=== PATIENT | female | born 1945 | race Caucasian/White ===

== ENCOUNTER → 2017-04-12 | Outpatient (REF) | payer MEDICARE, OTHER ==
[2017-04-12 14:59] LABS: ALBUMIN 3.8 GM/DL (3.2-5.2); ALBUMIN/GLOBULIN RATIO 1.12 (1.00-1.93); ALKALINE PHOSPHATASE 75 U/L (45-117); ALT/SGPT 40 U/L (12-78); ANION GAP 10 MEQ/L (8-16); AST/SGOT 35 U/L (15-37); BILIRUBIN,TOTAL 0.6 MG/DL (0.2-1.0); BLOOD UREA NITROGEN 15 MG/DL (7-18); CALCIUM LEVEL 9.2 MG/DL (8.8-10.2); CARBON DIOXIDE LEVEL 24 MEQ/L (21-32); CHLORIDE LEVEL 108 MEQ/L (98-107); CHOLESTEROL LEVEL 134 MG/DL (<200); CREATININE FOR GFR 0.68 MG/DL (0.55-1.02); FREE T4 1.69 NG/DL (0.76-1.46); GLOMERULAR FILTRATION RATE > 60.0 (>45); GLUCOSE, FASTING 118 MG/DL (80-110); SODIUM LEVEL 142 MEQ/L (136-145); TOTAL PROTEIN 7.2 GM/DL (6.4-8.2); TRIGLYCERIDES LEVEL 137 MG/DL (<150)
== END ==
LOC: M SFHCADAM 07:54
PROVIDERS: ATTEND Physician Assistant Medical
DX: Z78.0 Asymptomatic menopausal state (principal); E11.9 Type 2 diabetes mellitus without complications; E04.1 Nontoxic single thyroid nodule; E55.9 Vitamin D deficiency, unspecified

== ENCOUNTER → 2017-05-13 | Outpatient (CLI) | payer MEDICARE, BC, OTHER ==
--- NOTE | 2017-05-13 10:57 | REP ---
Clinical: Acute pain. Technique: AP, lateral, bilateral oblique and sunrise views of the right knee. Impression: Advanced tricompartmental osteoarthritic degenerative changes are appreciated. Findings include osteophytosis, medial tibiofemoral and patellofemoral joint space narrowing along with subchondral sclerosis and subtle chondrocalcinosis. No acute fracture or dislocation. No definite effusion. Impression: Advanced tricompartmental osteoarthritic degenerative changes. Signed by Zay Payne MD 05/13/2017 10:46 A
== END ==
LOC: M ADAMS 10:21
PROVIDERS: ATTEND Physician Assistant
DX: M17.11 Unilateral primary osteoarthritis, right knee (principal)

== ENCOUNTER → 2017-07-11 | Outpatient (REF) | payer MEDICARE | LOC: M SFHCADAM 12:54 | PROVIDERS: ATTEND Physician Assistant Medical | DX: R30.0 Dysuria (principal) ==

== ENCOUNTER → 2017-10-20 | Outpatient (REF) | payer MEDICARE, OTHER ==
[2017-10-20 20:18] LABS: BASO # 0.1 10^3/uL (0.0-0.2); BASO % 0.6 % (0.0-1.0); EOS # 0.2 10^3/uL (0.0-0.50); EOS % 2.3 % (0.0-3.0); IMMATURE GRANULOCYTE % 0.3 % (0-0); LYMPH # 2.7 10^3/uL (1.5-4.5); LYMPH % 30.4 % (24.0-44.0); MEAN CORPUSCULAR HEMOGLOBIN 27.9 pg (27.0-33.0); MEAN CORPUSCULAR VOLUME 87.2 fl (80.0-96.0); MONO # 0.6 10^3/uL (0.0-0.8); MONO % 6.3 % (0.0-5.0); NEUTROPHILS # 5.4 10^3/uL (1.8-7.7); NEUTROPHILS % 60.1 % (36.0-66.0); PLATELET COUNT, AUTOMATED 257 10^3/uL (150-450); RED CELL DISTRIBUTION WIDTH 13.2 % (11.5-14.5); WHITE BLOOD COUNT 8.9 10^3/uL (4.0-10.0)
[2017-10-20 20:53] LABS: ALBUMIN 3.9 GM/DL (3.2-5.2); ALBUMIN/GLOBULIN RATIO 1.08 (1.00-1.93); ALKALINE PHOSPHATASE 88 U/L (45-117); ALT/SGPT 40 U/L (12-78); ANION GAP 7 MEQ/L (8-16); AST/SGOT 33 U/L (7-37); BILIRUBIN,TOTAL 0.4 MG/DL (0.2-1.0); BLOOD UREA NITROGEN 29 MG/DL (7-18); CALCIUM LEVEL 9.1 MG/DL (8.8-10.2); CARBON DIOXIDE LEVEL 29 MEQ/L (21-32); CHLORIDE LEVEL 108 MEQ/L (98-107); CREATININE FOR GFR 0.83 MG/DL (0.55-1.02); FREE T4 1.32 NG/DL (0.76-1.46); GLOMERULAR FILTRATION RATE > 60.0 (>39); GLUCOSE, FASTING 170 MG/DL (83-110); POTASSIUM SERUM 3.9 MEQ/L (3.5-5.1); SODIUM LEVEL 144 MEQ/L (136-145); TOTAL PROTEIN 7.5 GM/DL (6.4-8.2)
== END ==
LOC: M SFHCADAM 15:04
PROVIDERS: ATTEND Physician Assistant Medical
DX: E03.9 Hypothyroidism, unspecified (principal); E11.9 Type 2 diabetes mellitus without complications; E78.4 Other hyperlipidemia; E55.9 Vitamin D deficiency, unspecified

== ENCOUNTER → 2017-12-15 | Outpatient (CLI) | payer MEDICARE, OTHER | LOC: M ADAMS 12:19 | DX: M25.78 Osteophyte, vertebrae (principal); M50.30 Other cervical disc degeneration, unspecified cervical region; M85.812 Other specified disorders of bone density and structure, left shoulder; M25.512 Pain in left shoulder | CPT/HCPCS: 72050 ==

== ENCOUNTER → 2018-01-16 | Outpatient (REF) | payer MEDICARE, OTHER | LOC: M LAB REF 19:22 | DX: N30.01 Acute cystitis with hematuria (principal) | CPT/HCPCS: 87088; 87186 ==

== ENCOUNTER → 2018-02-16 | Outpatient (REF) | payer MEDICARE, OTHER ==
[2018-02-16 14:03] LABS: ALBUMIN/GLOBULIN RATIO 1.21 (1.00-1.93); ALKALINE PHOSPHATASE 77 U/L (45-117); ALT/SGPT 24 U/L (12-78); ANION GAP 8 MEQ/L (8-16); AST/SGOT 22 U/L (7-37); BILIRUBIN,TOTAL 0.5 MG/DL (0.2-1.0); BLOOD UREA NITROGEN 21 MG/DL (7-18); CALCIUM LEVEL 8.8 MG/DL (8.8-10.2); CARBON DIOXIDE LEVEL 26 MEQ/L (21-32); CHLORIDE LEVEL 111 MEQ/L (98-107); CHOLESTEROL LEVEL 140 MG/DL (<200); CHOLESTEROL RISK RATIO 2.692 (<5); CREATININE FOR GFR 0.66 MG/DL (0.55-1.30); FREE T4 1.46 NG/DL (0.76-1.46); GLOMERULAR FILTRATION RATE > 60.0 (>39); GLUCOSE, FASTING 112 MG/DL (70-100); HDL CHOLESTEROL 52 MG/DL (>40); LDL CHOLESTEROL 64.6 MG/DL (<100); NON-HDL-C 88 MG/DL; POTASSIUM SERUM 4.4 MEQ/L (3.5-5.1); SODIUM LEVEL 145 MEQ/L (136-145); THYROID STIMULATING HORMONE 0.044 uIU/ML (0.358-3.740); TOTAL PROTEIN 7.3 GM/DL (6.4-8.2); TRIGLYCERIDES LEVEL 117 MG/DL (<150)
== END ==
LOC: M SFHCADAM 08:02
DX: E11.9 Type 2 diabetes mellitus without complications (principal); E78.4 Other hyperlipidemia; E03.9 Hypothyroidism, unspecified
CPT/HCPCS: 84443

== ENCOUNTER → 2018-09-24 | Outpatient (REF) | payer MEDICARE, OTHER ==
[2018-09-24 13:04] LABS: BASO # 0.1 10^3/uL (0.0-0.2); BASO % 0.9 % (0.0-1.0); EOS # 0.2 10^3/uL (0.0-0.50); EOS % 2.8 % (0.0-3.0); HEMATOCRIT 41.1 % (36.0-47.0); HEMOGLOBIN 13.5 g/dl (12.0-15.5); IMMATURE GRANULOCYTE % 0.2 % (0-3.0); LYMPH # 1.9 10^3/uL (1.5-4.5); LYMPH % 32.2 % (24.0-44.0); MEAN CORPUSCULAR HEMOGLOBIN 28.8 pg (27.0-33.0); MEAN CORPUSCULAR HGB CONC 32.8 g/dl (32.0-36.5); MEAN CORPUSCULAR VOLUME 87.8 fl (80.0-96.0); MONO # 0.5 10^3/uL (0.0-0.8); MONO % 7.8 % (0.0-5.0); NEUTROPHILS # 3.3 10^3/uL (1.8-7.7); NEUTROPHILS % 56.1 % (36.0-66.0); PLATELET COUNT, AUTOMATED 218 10^3/uL (150-450); RED BLOOD COUNT 4.68 10^6/uL (4.00-5.40); RED CELL DISTRIBUTION WIDTH 13.2 % (11.5-14.5); WHITE BLOOD COUNT 5.8 10^3/uL (4.0-10.0)
[2018-09-24 13:16] LABS: ALBUMIN 3.9 GM/DL (3.2-5.2); ALBUMIN/GLOBULIN RATIO 1.22 (1.00-1.93); ALKALINE PHOSPHATASE 70 U/L (45-117); ALT/SGPT 35 U/L (12-78); ANION GAP 8 MEQ/L (8-16); AST/SGOT 29 U/L (7-37); BILIRUBIN,TOTAL 0.6 MG/DL (0.2-1.0); BLOOD UREA NITROGEN 18 MG/DL (7-18); CALCIUM LEVEL 9.1 MG/DL (8.8-10.2); CARBON DIOXIDE LEVEL 26 MEQ/L (21-32); CHLORIDE LEVEL 106 MEQ/L (98-107); CHOLESTEROL LEVEL 129 MG/DL (<200); GLOMERULAR FILTRATION RATE > 60.0 (>39); GLUCOSE, FASTING 152 MG/DL (70-100); HDL CHOLESTEROL 52 MG/DL (>40); LDL CHOLESTEROL 55 MG/DL (<100); NON-HDL-C 77 MG/DL; POTASSIUM SERUM 4.6 MEQ/L (3.5-5.1); SODIUM LEVEL 140 MEQ/L (136-145); TOTAL 25(OH) VITAMIN D 20.7 NG/ML (30.0-100.0); TOTAL PROTEIN 7.1 GM/DL (6.4-8.2); TRIGLYCERIDES LEVEL 108 MG/DL (<150)
[2018-09-24 14:07] LABS: ESTIMATED AVERAGE GLUCOSE 157 MG/DL (60-110); HEMOGLOBIN A1c 7.1 %
== END ==
LOC: M SFHCADAM 08:00
DX: E11.9 Type 2 diabetes mellitus without complications (principal); E78.49 Other hyperlipidemia; E55.9 Vitamin D deficiency, unspecified
CPT/HCPCS: 80053

== ENCOUNTER → 2018-10-31 | Outpatient (CLI) | payer MEDICARE, OTHER, BC ==
--- NOTE | 2018-10-31 10:44 | REP ---
Clinical: Left knee pain. Technique: AP, lateral, bilateral oblique and sunrise views of the left knee. Findings: Moderate tricompartmental osteoarthritic degenerative changes include cortical irregularity, marginal osteophytes, subchondral sclerosis and medial as well as patellofemoral joint space narrowing. No acute fracture dislocation. No obvious effusion. Impression: Moderate tricompartmental osteoarthritic degenerative changes. Electronically Signed by Zay Payne MD 10/31/2018 10:36 A
--- NOTE | 2018-10-31 10:46 | REP ---
Clinical: Lower back pain. Technique: AP, lateral, coned-down views of the lumbosacral spine. Findings: Alignment and lordosis maintained. No acute fracture / compression injury or subluxation. Moderate multilevel degenerative changes primarily involving the L4-5 and L5-S1 levels include endplate sclerosis, disc space narrowing, and hypertrophic facet changes. Impression: Moderate multilevel degenerative changes. No acute fracture / compression injury or subluxation. Electronically Signed by Zay Payne MD 10/31/2018 10:37 A
== END ==
LOC: M ADAMS 10:11
PROVIDERS: ATTEND Physician Assistant
DX: M17.12 Unilateral primary osteoarthritis, left knee (principal); M51.36 Other intervertebral disc degeneration, lumbar region

== ENCOUNTER 2019-01-12 22:45 | Emergency (ER) | payer MEDICARE, OTHER, BC ==
[~2019-01-12] VITALS: Ht 170.2 cm; Wt 100.0 kg
[2019-01-12] MEDS ORDERED: ROSU5TAB4 PO (23:01)
[2019-01-12] MEDS ORDERED: METF10004 PO (23:01)
[2019-01-12] MEDS ORDERED: LEVO100T54 PO (23:01)
[2019-01-13] MEDS ORDERED: MORPHINE 2 MG/ML 1ML SYRINGE (J2270) IM ONE (00:15)
[2019-01-13] MEDS ORDERED: ROLLMIS2 XX (00:21)
[2019-01-13] MEDS ORDERED: NORCOTAB PO (00:21)
[2019-01-13] MEDS ORDERED: OXYCODONE/APAP 5MG/325MG(BULK FOR ED) 1 TABLET PO ONE (01:30)
[2019-01-13 03:11] VITALS: BP 160/82
--- NOTE | 2019-01-13 09:28 | REP ---
Right ankle four views: There is a trimalleolar fracture. The medial portion of the mortise is widened. There are is no dislocation. However, the distal tibia is subluxed anteriorly. There is a small calcaneal plantar spur Electronically Signed by Tim Duron MD 01/13/2019 09:20 A
--- NOTE | 2019-01-13 09:30 | REP ---
Right tibia-fibula four views: There is a trimalleolar fracture of the ankle. There is no other fracture. No calcifications or foreign bodies. Impression: Ankle trimalleolar fracture. Electronically Signed by Tim Duron MD 01/13/2019 09:23 A
--- NOTE | 2019-01-13 11:24 | ED PDOC ---
Post-Departure Follow-Up dr alford faxed formal report of right ankle/tib/fib for fu Marina Sage MD Jan 13, 2019 11:24
[2019-01-14] MEDS ORDERED: HYDR-3713 PO (15:49)
[2019-01-14] MEDS ORDERED: LORA10TA3 PO (16:58)
[2019-01-14] MEDS ORDERED: PATA2.5S OU (16:58)
[2019-01-14] MEDS ORDERED: FAMO1TAB25 PO (16:58)
== END 2019-01-13 03:09 | disposition home or self-care (01) ==
LOC: M ED 22:45
DX: S82.851A Displaced trimalleolar fracture of right lower leg, initial encounter for closed fracture (principal); W00.9XXA Unspecified fall due to ice and snow, initial encounter; Y92.093 Driveway of other non-institutional residence as the place of occurrence of the external cause; E11.9 Type 2 diabetes mellitus without complications; E03.9 Hypothyroidism, unspecified; E78.00 Pure hypercholesterolemia, unspecified; E66.9 Obesity, unspecified; Z79.84 Long term (current) use of oral hypoglycemic drugs; Z79.890 Hormone replacement therapy; Z79.899 Other long term (current) drug therapy; Z88.0 Allergy status to penicillin; Z88.1 Allergy status to other antibiotic agents; Z88.2 Allergy status to sulfonamides; Z88.8 Allergy status to other drugs, medicaments and biological substances

== ENCOUNTER 2019-01-14 13:15 | Inpatient (IN) | payer MEDICARE, OTHER, BC ==
[~2019-01-14] VITALS: Ht 170.2 cm; Wt 97.7 kg
[~2019-01-14 13:15] MED LIST: LEVO100T54 PO; METF10004 PO; NORCOTAB PO; ROLLMIS2 XX; ROSU5TAB4 PO
--- NOTE | 2019-01-14 15:01 | REP ---
Right ankle CT: Axial images are acquired helical scanning and a reformatted sagittal and coronal projections. Comparison is the plain film study dated 01/13/2019. There is a trimalleolar fracture as previously. The oblique fracture of the distal fibula demonstrates no diastases, however, there is slight overlapping of the fracture fragments measuring approximately 13 mm. There is a small accessory ossicle at the distal tip of the fibula. There is diastases of the medial malleolar fracture measuring 3 mm. Alignment is normal. There is a comminuted posterior malleolar fracture . There is a 2 ml step off along the posterior articular surface of the distal tibia at the fracture site. There is 2 mm of diastases of the major fracture fragments. There is a fiberglass cast. Electronically Signed by Tim Duron MD 01/14/2019 02:52 P
[2019-01-14 15:19] LABS: BASO % 0.5 % (0.0-1.0); EOS # 0.3 10^3/uL (0.0-0.50); EOS % 3.1 % (0.0-3.0); HEMATOCRIT 39.3 % (36.0-47.0); HEMOGLOBIN 12.8 g/dl (12.0-15.5); LYMPH # 1.9 10^3/uL (1.5-4.5); LYMPH % 23.8 % (24.0-44.0); MEAN CORPUSCULAR HEMOGLOBIN 28.7 pg (27.0-33.0); MEAN CORPUSCULAR HGB CONC 32.6 g/dl (32.0-36.5); MEAN CORPUSCULAR VOLUME 88.1 fl (80.0-96.0); MONO # 0.7 10^3/uL (0.0-0.8); MONO % 8.5 % (0.0-5.0); NEUTROPHILS # 5.1 10^3/uL (1.8-7.7); NEUTROPHILS % 63.8 % (36.0-66.0); PLATELET COUNT, AUTOMATED 186 10^3/uL (150-450); RED BLOOD COUNT 4.46 10^6/uL (4.00-5.40)
[2019-01-14 15:39] LABS: BLOOD UREA NITROGEN 18 MG/DL (7-18); CALCIUM LEVEL 8.1 MG/DL (8.8-10.2); CARBON DIOXIDE LEVEL 27 MEQ/L (21-32); CHLORIDE LEVEL 107 MEQ/L (98-107); CREATININE FOR GFR 0.79 MG/DL (0.55-1.30); GLOMERULAR FILTRATION RATE > 60.0 (>39); GLUCOSE, FASTING 151 MG/DL (70-100); POTASSIUM SERUM 3.7 MEQ/L (3.5-5.1); SODIUM LEVEL 141 MEQ/L (136-145)
[2019-01-14] MEDS ORDERED: HYDR-3713 PO (15:49)
[2019-01-14] MEDS ORDERED: PERCOCET 5MG/325MG TAB PO ONE (16:00)
--- NOTE | 2019-01-14 16:01 | REP ---
Right hip AP pelvis of four views History: Fall There is no acute fracture or dislocation. There is minimal narrowing of the joint spaces with associated sclerosis. IMPRESSION: Degenerative change as described above. Electronically Signed by Rustam Cullen MD 01/14/2019 04:08 P
[2019-01-14] MEDS ORDERED: PATA2.5S OU (16:58)
[2019-01-14] MEDS ORDERED: FAMO1TAB25 PO (16:58)
[2019-01-14] MEDS ORDERED: LORA10TA3 PO (16:58)
[2019-01-14] MEDS ORDERED: ACETAMINOPHEN TAB 650MG DOSE (2X325MG) PO PRN (19:45)
[2019-01-14] MEDS ORDERED: GLUCOSE 4 GM CHEW TABLET PO PRN (20:00)
[2019-01-14] MEDS ORDERED: DEXTROSE 50% 50 ML SYRINGE IV PRN (20:00)
[2019-01-14] MEDS ORDERED: LORATADINE 10 MG TAB PO PRN (20:00)
[2019-01-14] MEDS ORDERED: PERCOCET 5MG/325MG TAB PO PRN (20:00)
[2019-01-14] MEDS ORDERED: GLUCAGON FOR INJ 1 MG VIAL (J1610) SC PRN (20:00)
[2019-01-14] MEDS ORDERED: PILL CRUSHER/CUTTER 1 EACH XX PRN (20:15)
[2019-01-14 22:00] VITALS: BP 128/85
[2019-01-14] MEDS: PERCOCET 5MG/325MG TAB PO PRN (22:12)
[2019-01-14] MEDS: ROSUVASTATIN 10 MG TAB (CRESTOR) PO SCH (22:13)
[2019-01-14] MEDS: HumaLOG INSULIN (NovoLOG) PER UNIT SC SCH (22:52)
[2019-01-15 00:15] VITALS: BP 119/58
[2019-01-15] MEDS: LEVOTHYROXINE 100MCG TABLET (0.1MG) PO SCH (05:01)
[2019-01-15 05:03] VITALS: BP 133/68
[2019-01-15] MEDS: PERCOCET 5MG/325MG TAB PO PRN (05:12)
[2019-01-15 06:40] LABS: HEMATOCRIT 36.6 % (36.0-47.0); HEMOGLOBIN 11.8 g/dl (12.0-15.5); MEAN CORPUSCULAR HEMOGLOBIN 28.4 pg (27.0-33.0); MEAN CORPUSCULAR HGB CONC 32.2 g/dl (32.0-36.5); PLATELET COUNT, AUTOMATED 176 10^3/uL (150-450); RED BLOOD COUNT 4.16 10^6/uL (4.00-5.40); WHITE BLOOD COUNT 6.2 10^3/uL (4.0-10.0)
--- NOTE | 2019-01-15 06:57 | HPE ---
DATE OF ADMISSION: 01/14/2019 CHIEF COMPLAINT: Inability to care for herself after recent fall and bimalleolar right ankle fracture. HISTORY OF PRESENT ILLNESS: This is a 73-year-old female with a past medical history of diabetes, hypothyroidism, hyperlipidemia, who presents after patient recently fell on 01/12/2019 and had a right ankle malleolar fracture with inability to take care of herself. Patient reports that Monday, she was here in the emergency room and had a splint placed for the right ankle bimalleolar fracture. She called Dr. Trinh today and Dr. Trinh put her in a soft brace but said she was too swollen for surgery today. Dr. Trinh sent her here to be admitted because she was worried about the patient's ability to take care of herself in a setting of this new fracture. The patient' reports currently a 5 out of 10 pain in her right ankle that is well controlled with Percocet. She otherwise denies any complaints. REVIEW OF SYSTEMS: Negative on 14 out of 14 systems except as noted above. PAST MEDICAL HISTORY: As noted above in the history of present illness (HPI). PAST SURGICAL HISTORY: Cholecystectomy. Kidney stone removal. MEDICATIONS: Patient's home medications are: - Percocet one to two tablets every 4 hours as needed pain - metformin one gram by mouth twice a day - Pepcid 10 mg twice a day as needed indigestion - Patanol 0.1% solution, one drop OU twice a day as needed allergies - Synthroid 100 mcg daily - loratadine 10 mg by mouth daily as needed allergies - rosuvastatin 5 mg by mouth nightly ALLERGIES: AMPICILLIN, CEFACLOR, POVIDONE, IODINE, SULFA METHOXYL with TRIMETHOPRIM and TETRACYCLINE. SOCIAL HISTORY: Patient is and lives alone. No smoking. No drugs. She is retired. FAMILY HISTORY: Without findings of significant medical history. PHYSICAL EXAMINATION: On exam, the patient is currently afebrile to 97.6, blood pressure 122/55, pulse 75, respirations 18, saturating 97% on room air. GENERAL: She is in no acute distress and pleasant. HEENT: Oropharynx clear. NECK: Supple. CARDIOVASCULAR: Regular rate and rhythm. No murmurs, rubs or gallops. LUNGS: Clear to auscultation bilaterally. ABDOMEN: Soft, nontender, nondistended, positive bowel sounds. EXTREMITIES: No clubbing, cyanosis or edema. Her right leg is in a soft brace. NEURO: She is alert and oriented times three. Follows simple commands. No focal neurological deficits. SKIN: Intact. PSYCH: Mood stable. Labs reveal CBC with a white count of 8, hemoglobin 12.8, platelets of 186. Chemistry: Creatinine is 0.79, potassium 3.7. IMAGING: She had a hip/pelvis x-ray done today. This shows degenerative change. She had a right lower extremity CT done that shows the trimalleolar fracture as previously. See full report for full details. ASSESSMENT/PLAN: This is a 73-year-old female with a past medical history of diabetes, hypothyroidism, hyperlipidemia, who presents status post fall on 01/12/2019 with a right ankle trimalleolar fracture. PROBLEMS: 1. Trimalleolar ankle fracture: Dr. Trinh is aware of this patient and will see her. Apparently, she plans on surgery on Monday. For now, we will let her eat then and placed on Percocet for as needed pain control. She is otherwise stable. 2. Diabetes: Will hold her home metformin and place her on a sliding scale. 3. Hypothyroidism: Will continue her home Synthroid. 4. Hyperlipidemia: Continue her home statin. 5. Deep venous thrombosis (DVT) prophylaxis: She was put on Lovenox and this can be held prior to surgery.
[2019-01-15 07:00] LABS: BLOOD UREA NITROGEN 15 MG/DL (7-18); CALCIUM LEVEL 8.1 MG/DL (8.8-10.2); CARBON DIOXIDE LEVEL 26 MEQ/L (21-32); CHLORIDE LEVEL 108 MEQ/L (98-107); GLOMERULAR FILTRATION RATE > 60.0 (>39); GLUCOSE, FASTING 117 MG/DL (70-100); POTASSIUM SERUM 3.7 MEQ/L (3.5-5.1); SODIUM LEVEL 141 MEQ/L (136-145)
[2019-01-15] MEDS: HumaLOG INSULIN (NovoLOG) PER UNIT SC SCH ×4 (07:30→21:00)
[2019-01-15 08:00] VITALS: BP 138/69
[2019-01-15] MEDS: ENOXAPARIN 40 MG/0.4 ML SYRINGE (J1650) SC SCH (08:40)
--- NOTE | 2019-01-15 09:11 | IPNPDOC ---
Subjective Date Seen The patient was seen on 01/15/19. Subjective Chief Complaint/HPI Pt this morning reports that she is doing alright. She is quite tired, hasn't slept in 3 nights. States that when she fell also hurt her R hip and low back which makes it very difficult for her to maneuver independently. General: Reports: Fatigue Constitutional: Denies: Chills, Fever ENT: Denies: Head Aches Pulmonary: Denies: Dyspnea, Cough Cardiovascular: Denies: Chest Pain, Palpitations Gastrointestinal: Denies: Nausea, Vomiting, Diarrhea Neurological: Denies: Weakness Psych: Reports: Mood Normal Objective Physical Examination General Exam: Positive: Alert, Cooperative, No Acute Distress ENT Exam: Positive: Mucous membr. moist/pink Chest Exam: Positive: Clear to auscultation, Normal air movement Heart Exam: Positive: Rate Normal, Normal S1, Normal S2 Abdomen Exam: Positive: Normal bowel sounds, Soft; Negative: Tenderness Extremity Exam: Negative: Edema (R LE casted) Neuro Exam: Positive: Normal Speech Psych Exam: Positive: Mental status NL, Mood NL Assessment /Plan Problems (1) Bimalleolar fracture of right ankle Status: Acute Response to Treatment: Stable Discussed With: Nurse, Harpsichord Maker, Patient Problem Specific Plan: Consult Specialist, Monitor Clinically, Repeat Labs Problem Text: Pt managed by Ortho, Dr Trinh, plans for OR tomorrow. Pain controlled. Likely will need short term rehab post operatively. (2) DM2 (diabetes mellitus, type 2) Status: Chronic Response to Treatment: Stable Problem Specific Plan: Monitor Clinically Problem Text: Metformin held, monitor FSBS, resume post operatively. (3) Hypothyroidism Status: Chronic Response to Treatment: Stable Problem Specific Plan: Monitor Clinically Plan/VTE VTE Prophylaxis Ordered?: Yes VS, I&O, 24H, Fishbone Vital Signs/I&O Vital Signs Date Time Temp Pulse Resp B/P (MAP) Pulse Ox O2 Delivery O2 Flow Rate FiO2 01/15/19 05:42 18 01/15/19 05:03 97.1 87 133/68 (89) 97 01/14/19 17:52 Room Air I&O- Last 24 Hours up to 6 AM 01/15/19 06:00 Intake Total 180 ml Output Total 250 ml Balance -70 ml Laboratory Data 24H LABS Laboratory Tests 2 01/14/19 15:03: Immature Granulocyte % (Auto) 0.3, White Blood Count 8.0, Red Blood Count 4.46, Hemoglobin 12.8, Hematocrit 39.3, Mean Corpuscular Volume 88.1, Mean Corpuscular Hemoglobin 28.7, Mean Corpuscular Hemoglobin Concent 32.6, Red Cell Distribution Width 13.2, Platelet Count 186, Neutrophils (%) (Auto) 63.8, Lymphocytes (%) (Auto) 23.8L, Monocytes (%) (Auto) 8.5H, Eosinophils (%) (Auto) 3.1H, Basophils (%) (Auto) 0.5, Neutrophils # (Auto) 5.1, Lymphocytes # (Auto) 1.9, Monocytes # (Auto) 0.7, Eosinophils # (Auto) 0.3, Basophils # (Auto) 0.0, Nucleated Red Blood Cells % (auto) 0.0, Anion Gap 7L, Glomerular Filtration Rate > 60.0, Blood Urea Nitrogen 18, Creatinine 0.79, Sodium Level 141, Potassium Level 3.7, Chloride Level 107, Carbon Dioxide Level 27, Calcium Level 8.1L 01/14/19 22:19: Bedside Glucose (Misc Panel) 168H 01/15/19 06:27: Nucleated Red Blood Cells % (auto) 0.0, Anion Gap 7L, Glomerular Filtration Rate > 60.0, Blood Urea Nitrogen 15, Creatinine 0.60, Sodium Level 141, Potassium Level 3.7, Chloride Level 108H, Carbon Dioxide Level 26, Calcium Level 8.1L CBC/BMP Laboratory Tests 01/14/19 15:03 Red Blood Count 4.46, Mean Corpuscular Volume 88.1, Mean Corpuscular Hemoglobin 28.7, Mean Corpuscular Hemoglobin Concent 32.6, Red Cell Distribution Width 13.2, Neutrophils (%) (Auto) 63.8, Lymphocytes (%) (Auto) 23.8 L, Monocytes (%) (Auto) 8.5 H, Eosinophils (%) (Auto) 3.1 H, Basophils (%) (Auto) 0.5, Neutrophils # (Auto) 5.1, Lymphocytes # (Auto) 1.9, Monocytes # (Auto) 0.7, Eosinophils # (Auto) 0.3, Basophils # (Auto) 0.0, Calcium Level 8.1 L 01/15/19 06:27 Red Blood Count 4.16, Mean Corpuscular Volume 88.0, Mean Corpuscular Hemoglobin 28.4, Mean Corpuscular Hemoglobin Concent 32.2, Red Cell Distribution Width 13.2, Calcium Level 8.1 L ANDREA JARVIS PA-C Jan 15, 2019 09:11
[2019-01-15 12:00] VITALS: BP 140/68
[2019-01-15] MEDS ORDERED: MORPHINE 4 MG/ML 1ML VIAL/SYRINGE (J2270) IV PRN (12:30)
[2019-01-15] MEDS: diphenhydrAMINE 25 MG CAP PO PRN (12:38)
[2019-01-15] MEDS: traMADol 50 MG TAB PO PRN ×2 (12:39→18:08)
[2019-01-15 14:45] VITALS: BP 141/60
[2019-01-15] MEDS ORDERED: NORCO, ANEXSIA 5/325MG TABLET (HYDROcodone/ACETAMINOPHEN) PO PRN (19:00)
[2019-01-15] MEDS: DOCUSATE SODIUM 100 MG CAP PO SCH (20:38)
[2019-01-15] MEDS: ROSUVASTATIN 10 MG TAB (CRESTOR) PO SCH (20:39)
[2019-01-15 22:00] VITALS: BP 131/57
[2019-01-16] MEDS: NORCO, ANEXSIA 5/325MG TABLET (HYDROcodone/ACETAMINOPHEN) PO PRN ×3 (00:13→10:37)
[2019-01-16 02:00] VITALS: BP 121/56
[2019-01-16] MEDS: diphenhydrAMINE 25 MG CAP PO PRN ×2 (02:23→10:37)
[2019-01-16] MEDS: LEVOTHYROXINE 100MCG TABLET (0.1MG) PO SCH (05:13)
[2019-01-16] MEDS: ENOXAPARIN 40 MG/0.4 ML SYRINGE (J1650) SC SCH (05:45)
[2019-01-16 06:00] VITALS: BP 143/65
[2019-01-16] MEDS: CLINDAMYCIN 600 MG in APPROPRIATE DILUENT 1 EA IV ONE ×2 (06:00→17:24)
--- NOTE | 2019-01-16 07:43 | IPNPDOC ---
Subjective Date Seen The patient was seen on 01/16/19. Subjective Chief Complaint/HPI Patient lying comfortably in bed as I entered the room. She offered no complaints. She is preparing for surgery later today Constitutional: Denies: Chills, Fever Pulmonary: Denies: Dyspnea, Cough Cardiovascular: Denies: Chest Pain, Palpitations, Orthopnea Gastrointestinal: Denies: Nausea, Vomiting, Abdominal Pain, Constipation Psych: Reports: Mood Normal Objective Physical Examination General Exam: Positive: Alert, Cooperative, No Acute Distress ENT Exam: Positive: Mucous membr. moist/pink Chest Exam: Positive: Clear to auscultation, Normal air movement Heart Exam: Positive: Rate Normal, Normal S1, Normal S2 Abdomen Exam: Positive: Normal bowel sounds, Soft; Negative: Tenderness Extremity Exam: Negative: Edema (R LE casted) Neuro Exam: Positive: Normal Speech Psych Exam: Positive: Mental status NL, Mood NL Assessment /Plan Problems (1) Bimalleolar fracture of right ankle Status: Acute Response to Treatment: Stable Discussed With: Nurse, Circulation Worker, Patient Problem Specific Plan: Consult Specialist, Monitor Clinically, Repeat Labs Problem Text: 01/16/19: Patient medically optimized for surgery today. Plan for OR later this afternoon Pt managed by Ortho, Dr Trinh, plans for OR tomorrow. Pain controlled. Likely will need short term rehab post operatively. (2) DM2 (diabetes mellitus, type 2) Status: Chronic Response to Treatment: Stable Problem Specific Plan: Monitor Clinically Problem Text: 01/16/19: Medications held in preparation for surgery today. We will resume post operatively Metformin held, monitor FSBS, resume post operatively. (3) Hypothyroidism Status: Chronic Response to Treatment: Stable Problem Specific Plan: Monitor Clinically Plan/VTE VTE Prophylaxis Ordered?: Yes (Lovenox ) VS, I&O, 24H, Fishbone Vital Signs/I&O Vital Signs Date Time Temp Pulse Resp B/P (MAP) Pulse Ox O2 Delivery O2 Flow Rate FiO2 01/16/19 06:00 98.0 73 18 143/65 (91) 95 01/14/19 17:52 Room Air I&O- Last 24 Hours up to 6 AM 01/16/19 06:00 Intake Total 600 ml Output Total 1125 ml Balance -525 ml Laboratory Data 24H LABS Laboratory Tests 2 01/15/19 11:32: Bedside Glucose (Misc Panel) 157H 01/15/19 16:54: Bedside Glucose (Misc Panel) 122H 01/15/19 20:30: Bedside Glucose (Misc Panel) 146H LIZ MEDINA [facility] Jan 16, 2019 07:43
[2019-01-16] MEDS: HumaLOG INSULIN (NovoLOG) PER UNIT SC SCH ×4 (08:32→21:00)
[2019-01-16] MEDS: DOCUSATE SODIUM 100 MG CAP PO SCH ×2 (08:33→22:08)
[2019-01-16 14:00] VITALS: BP 136/66
[2019-01-16] MEDS ORDERED: ROCURONIUM BROMIDE 50 MG/5 ML VIAL As Ordered ONE (14:10)
[2019-01-16] MEDS ORDERED: ONDANSETRON 4MG/2ML VIAL (J2405) As Ordered ONE ×2 (14:10→19:48)
[2019-01-16] MEDS ORDERED: dexameTHASONE 4 MG/ML 1ML VIAL (J1100) As Ordered ONE (14:10)
[2019-01-16] MEDS ORDERED: PROPOFOL 200 MG/20 ML VIAL As Ordered ONE (14:10)
[2019-01-16] MEDS ORDERED: LIDOCAINE 2% INJ 100 MG/5 ML SDV (FOR ANES.) As Ordered ONE (14:10)
[2019-01-16] MEDS ORDERED: fentaNYL 100 MCG/2 ML INJECTION (J3010) As Ordered ONE ×3 (14:11→19:37)
[2019-01-16] MEDS ORDERED: MIDAZOLAM INJ 2 MG/2 ML VIAL (J2250) As Ordered ONE ×2 (14:11→14:59)
[2019-01-16] MEDS: fentaNYL 100 MCG/2 ML INJECTION (J3010) IV SCH ×2 (17:06→17:08)
[2019-01-16] MEDS ORDERED: MIDAZOLAM INJ 2 MG/2 ML VIAL (J2250) IV SCH (17:45)
[2019-01-16] MEDS ORDERED: ROPIvacaine 0.5% 30 ML INJECTION (J2795 PER 1MG) ONE (18:56)
[2019-01-16] MEDS ORDERED: dexameTHASONE 10 MG/1 ML VIAL PRES.FREE (J1100) ONE (18:56)
[2019-01-16] MEDS ORDERED: LIDOCAINE 1% MDV 20ML VIAL ONE (18:56)
[2019-01-16] MEDS ORDERED: NEOSTIGMINE 10 MG/10 ML VIAL (J2710) As Ordered ONE (19:47)
[2019-01-16] MEDS ORDERED: GLYCOPYRROLATE INJ 0.2 MG/ML 2 ML VIAL As Ordered ONE (19:47)
[2019-01-16] MEDS ORDERED: METOCLOPRAMIDE INJ 10MG/2ML VIAL (J2765) As Ordered ONE (19:48)
[2019-01-16] MEDS ORDERED: KETOROLAC 60 MG/2 ML VIAL (J1885) As Ordered ONE (19:48)
--- NOTE | 2019-01-16 20:38 | REP ---
RIGHT ANKLE COMPLETE: 01/16/2019. Comparison: CT ankle 01/14/2019, x-ray 01/13/2019. Clinical history: ORIF right ankle fracture. Findings: Nine images from C-arm fluoroscopy provided to Dr. Land of the orthopedic division. Compression side plate and screws are noted in the distal fibular fracture and two screws in the medial malleolar component of the fracture. The posterior malleolar component appears nearly anatomically aligned on the true lateral views. Fluoroscopy time: 2 minutes 20 seconds. Electronically Signed by Pavan Solis MD 01/16/2019 10:09 P
[2019-01-16] MEDS ORDERED: HYDROMORPHONE HCL 0.5 MG/ 0.5 ML SYRINGE (J1170 PER 1) IV PRN (20:45)
[2019-01-16] MEDS ORDERED: fentaNYL 100 MCG/2 ML INJECTION (J3010) IV PRN (20:45)
[2019-01-16] MEDS ORDERED: ONDANSETRON 4MG/2ML VIAL (J2405) IV PRN (20:45)
[2019-01-16] MEDS ORDERED: PERCOCET 5MG/325MG TAB PO PRN (20:45)
[2019-01-16] MEDS ORDERED: LR 1,000 ML IV SCH (20:45)
[2019-01-16] MEDS ORDERED: MORPHINE 4 MG/ML 1ML VIAL/SYRINGE (J2270) IV PRN (21:45)
[2019-01-16] MEDS ORDERED: oxyCODONE 5MG TAB PO PRN ×2 (21:45)
[2019-01-16 22:00] VITALS: BP 146/80
[2019-01-16] MEDS: ACETAMINOPHEN 500 MG TAB PO SCH (22:07)
[2019-01-16] MEDS: ROSUVASTATIN 10 MG TAB (CRESTOR) PO SCH (22:08)
[2019-01-16 22:30] VITALS: BP 150/82
[2019-01-16 23:00] VITALS: BP 156/80
[2019-01-17] VITALS: BP 148/92
[2019-01-17 01:00] VITALS: BP 142/88
[2019-01-17] MEDS: CLINDAMYCIN 600 MG in APPROPRIATE DILUENT 1 EA IV SCH ×2 (01:36→08:36)
[2019-01-17 02:00] VITALS: BP 140/89
[2019-01-17] MEDS: ACETAMINOPHEN 500 MG TAB PO SCH ×2 (05:38→14:00)
[2019-01-17] MEDS: LEVOTHYROXINE 100MCG TABLET (0.1MG) PO SCH (05:38)
[2019-01-17 06:00] VITALS: BP 124/77
[2019-01-17] MEDS ORDERED: XARE10TA PO (07:39)
[2019-01-17] MEDS ORDERED: TRAM50TA2 PO (07:39)
--- NOTE | 2019-01-17 07:52 | REP ---
Right ankle three views post internal fixation: There is a fiberglass cast. There is a compression plate stabilizing the fracture of the distal fibula in satisfactory position alignment. There are two orthopedic screws stabilizing the fracture of the medial malleolus in satisfactory position alignment. The mortise is symmetric. There is a fracture of the posterior malleolus maintained in satisfactory position alignment. Electronically Signed by Tim Duron MD 01/17/2019 07:43 A
[2019-01-17] MEDS: HumaLOG INSULIN (NovoLOG) PER UNIT SC SCH ×2 (08:35→13:28)
[2019-01-17] MEDS: DOCUSATE SODIUM 100 MG CAP PO SCH (08:35)
[2019-01-17] MEDS: NORCO, ANEXSIA 5/325MG TABLET (HYDROcodone/ACETAMINOPHEN) PO PRN ×2 (08:36→13:33)
[2019-01-17] MEDS ORDERED: PEG1POW PO (08:59)
[2019-01-17] MEDS ORDERED: COLA100C5 PO (08:59)
[2019-01-17] MEDS ORDERED: MIRALAX *UNIT DOSE* 17GM PACKET PO SCH (09:00)
[2019-01-17] MEDS ORDERED: ASPIRIN 81 MG CHEW TABLET PO SCH (09:00)
[2019-01-17] MEDS ORDERED: NORCOTAB PO (09:03)
[2019-01-17] MEDS ORDERED: MAGNESIUM CITRATE 300 ML BTL PO ONE (09:15)
--- NOTE | 2019-01-17 14:29 | DSES ---
DATE OF ADMISSION: 01/14/2019 DATE OF DISCHARGE: 01/17/2019 PRIMARY CARE PHYSICIAN: Meka Archer PA-C ATTENDING TODAY: Rosalva Mauricio DO [employer] Dr. Land HISTORY: This is a 73-year-old female patient who fell in her driveway on Monday evening, January 12. She suffered a right ankle fracture, was seen in the emergency room and discharged home. Upon arrival home she was unable to maneuver herself by herself due to the right ankle fracture as well as right hip and low back pain secondary to the fall and chronic left knee pain. She had help from her son and her grandson, although this resulted in another fall in the downstairs bathroom. [facility] called [facility] as instructed on Monday for follow-up with Dr. Land. Dr. Land saw her in the office and upon being informed that the patient was unable to be independent at home with her fracture, she was sent to the emergency room. Upon arrival to the emergency room, she was evaluated by physical therapy who agreed that she was not safe to be home and therefore she was admitted to the hospital for trimalleolar fracture, to await surgical consult and open reduction internal fixation (ORIF) which the patient underwent on January 16. At this point, she has been seen by physical therapy who feel as though she is appropriate for rehab. Her pain is controlled. She is eating well. Her routine at home medications can be resumed for both diabetes and hypothyroidism. DISCHARGE DIAGNOSES: Include: 1. Right bimalleolar fracture. 2. Diabetes mellitus type 2. 3. Hypothyroidism. 4. Morbid obesity. 5. Left knee osteoarthritis (OA). MEDICATIONS: Include: - hydrocodone one tablet every 4 hours as needed for pain, maximum daily dose of 6 - Colace 100 mg by mouth twice a day - polyethylene glycol one packet daily - Xarelto 10 mg by mouth daily - amlodipine 10 mg by mouth twice a day as needed for indigestion - Levoxyl 100 mcg by mouth daily - loratadine 10 mg by mouth daily as needed for allergies - metformin 1000 mg by mouth twice a day - Patanol one drop each eye twice daily as needed for allergies - rosuvastatin 5 mg by mouth at bedtime ACTIVITY: Should be per [facility]. DIET: Her diet should be consistent carbohydrate. Patient is being discharged to [facility] for rehabilitation. edited: 01/18/2019 0717 brandy NUNN
[2019-01-17] MEDS ORDERED: RIVAROXABAN 10 MG TAB (XARELTO) PO SCH (18:00)
[2019-01-18] MEDS ORDERED: SENN-23 PO (09:48)
[2019-01-18] MEDS ORDERED: ENEMENE4 PR (09:48)
[2019-01-18] MEDS ORDERED: VITMTA PO (09:48)
[2019-01-18] MEDS ORDERED: NORC1TAB4 PO (09:48)
[2019-01-18] MEDS ORDERED: COLA100C5 PO (09:48)
[2019-01-18] MEDS ORDERED: DULC10SU2 PR (09:48)
[2019-01-18] MEDS ORDERED: ACET1TAB55 PO (09:48)
[2019-01-18] MEDS ORDERED: MILK120011 PO (09:48)
[2019-01-18] MEDS ORDERED: XARE10TA PO (09:48)
[2019-01-18] MEDS ORDERED: GABA-843 PO (11:16)
--- NOTE | 2019-01-18 14:28 | CR ---
DATE OF CONSULTATION: 01/15/2019 CHIEF COMPLAINT: Right ankle fracture. HISTORY OF PRESENT ILLNESS: Yani Whittaker is a 73-year-old female who sustained a mechanical fall resulting in a right bimalleolar ankle fracture. She has been nonweight bearing on the right lower extremity and does lives alone. She was having significant difficulties at home and her and her daughter are quite concerned about her well being and safety. She does have history of diabetes, hypothyroidism and hyperlipidemia. The patient had been seen in the clinic where she was placed into a cast. Her daughter and herself did not feel like they could return home from the clinic and they were sent to the emergency room for further evaluation and possible halfway placement. She does have pain in her right ankle, however, it is controlled with pain medications. She will need open reduction internal fixation of the ankle as it is an unstable fracture. The patient is upset as she feels she should have never been sent home from the emergency room on the day of her injury. REVIEW OF SYSTEMS: Negative except for right ankle pain. PAST MEDICAL HISTORY: 1. Diabetes. 2. Hypothyroidism. 3. Hyperlipidemia. PAST SURGICAL HISTORY: 1. Cholecystectomy. 2. Kidney stone removal. HOME MEDICATIONS: - Percocet - metformin - Pepcid - atenolol - Synthroid - Loratadine - rosuvastatin ALLERGIES: - AMPICILLIN - CEFACLOR - POVIDONE IODINE - SULFA - METHOXYL WITH TRIMETHOPRIM - TETRACYCLINE SOCIAL HISTORY: The patient is . She lives alone. She does not smoke. She is retired. She does have a daughter who is here for her support. PHYSICAL EXAMINATION: General: Well appearing, alert and oriented, in no acute distress. Vital Signs on Admission: Temperature 97.6, blood pressure 122/55, respiratory rate 18, pulse 75, oxygen saturation 97% on room air. General: No acute distress. Cardiovascular: Regular rate and rhythm. Lungs: Clear to auscultation bilaterally. Abdomen: Soft. Nontender. Musculoskeletal: Right leg cast is intact. Intact EHL and FHL. Normal sensation to light touch over the toes. Toes are warm and well perfused. IMAGING: Right ankle CT scan shows a displaced trimalleolar fracture. Hip x-ray is also done which is positive for degenerative change. IMPRESSION: 73-year-old female with safety issues at home and right displaced ankle fracture. PLAN: The patient will need open reduction internal fixation (ORIF) of her ankle. We will get this set up for her as soon as possible. She will also need medical clearance. She will likely need placement as there is quite a great deal of concern about her being at home.
--- NOTE | 2019-01-18 23:31 | RO ---
DATE OF PROCEDURE: 01/16/2019 PREPROCEDURE DIAGNOSIS: Right trimalleolar ankle fracture. POSTPROCEDURE DIAGNOSIS: Right trimalleolar ankle fracture. PROCEDURE: Open reduction internal fixation right medial malleolus and lateral malleolus. SURGEON: Teresita Land MD TRAILER CHIEF: AUNG Castro ANESTHESIA: Popliteal block and general endotracheal. ESTIMATED BLOOD LOSS: 50 mL. COMPLICATIONS: None. CONDITION: Stable to recovery. IMPLANTS: Synthes distal fibula locking plate with associated 3.5 mm and 2.7 mm screws, and two 3.5 mm cannulated screws. INDICATIONS: Yani Whittaker is a 73-year-old female, status post a mechanical fall. Patient sustained a right trimalleolar ankle fracture. Risk and benefits of surgery were discussed with the patient in detail and included but are not limited to infection, damage to nerves and blood vessels, need for additional procedures, continued pain and stiffness. We also discussed blood clot and malunion or nonunion. Informed consent was obtained in the office and patient elected to proceed with surgery. DESCRIPTION OF PROCEDURE: The patient was met in the preoperative holding area where the right lower extremity was examined. Soft tissue envelope was found to be amenable to surgery. Her right lower extremity was marked as the correct operative site. She then underwent a nerve block by the anesthesiologist. She was taken to the operating room and placed in the supine position on the operating room table. Bony prominences were well padded. A well-padded tourniquet was placed on the right upper thigh. A chlorhexidine scrub was performed of the right lower extremity and then the right lower extremity was prepped and draped in the normal sterile fashion. The patient received antibiotics within 60 minutes prior to incision. At this point, the official time-out was held where the correct patient, operative site, and operative procedure were verified. The leg was exsanguinated and tourniquet was inflated to 250 mmHg. An incision was made in the posterolateral aspect of the distal fibula. Careful dissection was performed, and the fracture site was identified. Fracture was cleaned of hematoma and debris. Care was taken to keep my dissection posterior as to avoid the superficial peroneal nerve. Once the fracture was identified, a reduction was performed with a pointed reduction clamp. I did try to place a lag screw, however, given the comminuted nature of the fracture site. I was unable to get a screw with good purchase. A decision was then made to place the locking plate on distally. This was secured with 2.7 mm locking screws. After that, I then reduced the fracture with the pointed reduction clamp and the 3.5 mm screws were placed proximally. Following this, I was able to place a screw across the fracture site through the plate. Reduction and hardware placement were confirmed on AP, lateral, and mortise views. Next, attention was turned to the medial side. An incision was made directly over the medial malleolus. Dissection was performed with care to avoid the saphenous vein. Fracture site was identified and cleaned of hematoma and debris. It was reduced with a pointed reduction clamp. Two 3.5 mm cannulated screws were placed across the fracture site. Final x-rays were performed and fracture reduction was found to be satisfactory on AP, lateral, and mortise views. I did stress the fracture with an external rotation stress test under live fluoroscopy and there was no widening of the medial clear space. The posterior malleolar fragment reduced nicely without surgical intervention after the fibula was out to length and this was left alone. AUNG Castro was present through the entire procedure and was essential for soft tissue retraction, aid in hardware placement, and overall reduction in tourniquet time. The patient's wounds were irrigated copiously with normal saline. Subcutaneous tissues were closed with #3-0 Vicryl and skin was closed using #3-0 nylon. A sterile dressing was applied, and the patient was placed into a well-padded cast. She was extubated and transferred to the recovery room in stable condition. PLAN: The patient will be non-weightbearing on the right lower extremity. She will be on Xarelto for deep vein thrombosis (DVT) prophylaxis. She will followup with me in 1 week for dressing and cast change, and skin check. Patient was admitted to the hospital for intermediate placement. Edited 01/18/2019 jack
== END 2019-01-17 13:45 | DRG 494 ==
LOC: M ED 13:15 → M ED INP 19:43 → M MS5PR 01-15 14:43
PROVIDERS: ADMIT Hospitalist; ATTEND Family Medicine
PROC: 0QSJ04Z Reposition Right Fibula with Internal Fixation Device, Open Approach (ICD-10-PCS; principal; 2019-01-16 15:30)
DX: S82.851A Displaced trimalleolar fracture of right lower leg, initial encounter for closed fracture (principal); E11.9 Type 2 diabetes mellitus without complications; E03.9 Hypothyroidism, unspecified; E78.5 Hyperlipidemia, unspecified; Z90.49 Acquired absence of other specified parts of digestive tract; Z87.442 Personal history of urinary calculi; Z79.84 Long term (current) use of oral hypoglycemic drugs; Z79.899 Other long term (current) drug therapy; Z88.1 Allergy status to other antibiotic agents; Z88.2 Allergy status to sulfonamides; Z88.8 Allergy status to other drugs, medicaments and biological substances; W19.XXXA Unspecified fall, initial encounter; Y92.014 Private driveway to single-family (private) house as the place of occurrence of the external cause; M17.12 Unilateral primary osteoarthritis, left knee

== ENCOUNTER 2019-01-18 09:02 | Emergency (ER) | payer MEDICARE, OTHER, BC ==
[~2019-01-18] VITALS: Ht 170.2 cm; Wt 97.7 kg
[~2019-01-18 09:02] MED LIST changes: +COLA100C5 PO; +FAMO1TAB25 PO; +HYDR-3713 PO; +LORA10TA3 PO; +PATA2.5S OU; +PEG1POW PO; +TRAM50TA2 PO; +XARE10TA PO
[2019-01-18] MEDS ORDERED: VITMTA PO (09:48)
[2019-01-18] MEDS ORDERED: XARE10TA PO (09:48)
[2019-01-18] MEDS ORDERED: DULC10SU2 PR (09:48)
[2019-01-18] MEDS ORDERED: ENEMENE4 PR (09:48)
[2019-01-18] MEDS ORDERED: NORC1TAB4 PO (09:48)
[2019-01-18] MEDS ORDERED: MILK120011 PO (09:48)
[2019-01-18] MEDS ORDERED: COLA100C5 PO (09:48)
[2019-01-18] MEDS ORDERED: SENN-23 PO (09:48)
[2019-01-18] MEDS ORDERED: ACET1TAB55 PO (09:48)
[2019-01-18] MEDS ORDERED: MORPHINE 4 MG/ML 1ML VIAL/SYRINGE (J2270) IV ONE (10:00)
[2019-01-18] MEDS ORDERED: GABAPENTIN 300 MG CAP PO ONE (10:00)
[2019-01-18] MEDS ORDERED: GABA-843 PO (11:16)
[2019-01-18] MEDS ORDERED: HYDROMORPHONE HCL 0.5 MG/ 0.5 ML SYRINGE (J1170 PER 1) IV ONE (11:30)
[2019-01-18 14:50] VITALS: BP 140/65
== END 2019-01-18 15:11 | disposition home or self-care (01) ==
LOC: M ED 09:02
DX: M25.571 Pain in right ankle and joints of right foot (principal); E11.9 Type 2 diabetes mellitus without complications; G62.9 Polyneuropathy, unspecified; E03.9 Hypothyroidism, unspecified; K21.9 Gastro-esophageal reflux disease without esophagitis; Z79.899 Other long term (current) drug therapy; Z79.01 Long term (current) use of anticoagulants; Z88.0 Allergy status to penicillin; Z88.1 Allergy status to other antibiotic agents; Z88.2 Allergy status to sulfonamides; Z88.8 Allergy status to other drugs, medicaments and biological substances
CPT/HCPCS: 96374; 96375; 99284; J1170; J2270

== ENCOUNTER → 2019-03-30 | Outpatient (REF) | payer MEDICARE, OTHER ==
[~2019-03-30] MED LIST changes: +ACET1TAB55 PO; +DULC10SU2 PR; +ENEMENE4 PR; +GABA-843 PO; +HYDR-3715 PO; +MILK120011 PO; +NORC1TAB7 PO; -NORCOTAB PO; +SENN-23 PO; +VITMTA PO
== END ==
LOC: M LAB REF 11:26
PROVIDERS: ATTEND Physician Assistant Medical
DX: N39.0 Urinary tract infection, site not specified (principal)

== ENCOUNTER → 2019-05-21 | Outpatient (REF) | payer MEDICARE, OTHER ==
[~2019-05-21] MED LIST changes: -ROSU5TAB4 PO; +ROSU5TAB5 PO
[2019-05-21 13:55] LABS: ALBUMIN 3.9 GM/DL (3.2-5.2); ALT/SGPT 29 U/L (12-78); BILIRUBIN,TOTAL 0.5 MG/DL (0.2-1.0); BLOOD UREA NITROGEN 20 MG/DL (7-18); CALCIUM LEVEL 9.3 MG/DL (8.8-10.2); CARBON DIOXIDE LEVEL 28 MEQ/L (21-32); CHLORIDE LEVEL 106 MEQ/L (98-107); CREATININE FOR GFR 0.65 MG/DL (0.55-1.30); GLOMERULAR FILTRATION RATE > 60.0 (>39); GLUCOSE, FASTING 113 MG/DL (70-100); SODIUM LEVEL 140 MEQ/L (136-145); TOTAL 25(OH) VITAMIN D 15.5 NG/ML (30.0-100.0); TOTAL PROTEIN 7.2 GM/DL (6.4-8.2)
[2019-05-21 14:18] LABS: CREATININE, URINE 99.4 MG/DL; MALB URINE SIEMENS 20.9 MG/L
[2019-05-21 14:36] LABS: HEMOGLOBIN A1c 7.3 %
== END ==
LOC: M SFHCADAM 10:20
PROVIDERS: ATTEND Physician Assistant Medical
DX: E11.9 Type 2 diabetes mellitus without complications (principal); E55.9 Vitamin D deficiency, unspecified

== ENCOUNTER → 2019-11-26 | Outpatient (REF) | payer MEDICARE, OTHER ==
[2019-11-26 14:07] LABS: ALT/SGPT 23 U/L (12-78); BILIRUBIN,TOTAL 0.5 MG/DL (0.2-1.0); BLOOD UREA NITROGEN 18 MG/DL (7-18); CALCIUM LEVEL 8.8 MG/DL (8.8-10.2); CARBON DIOXIDE LEVEL 29 MEQ/L (21-32); CHLORIDE LEVEL 107 MEQ/L (98-107); CHOLESTEROL LEVEL 143 MG/DL (<200); CHOLESTEROL RISK RATIO 2.508 (<5); CREATININE FOR GFR 0.67 MG/DL (0.55-1.30); FREE T4 1.33 NG/DL (0.76-1.46); GLOMERULAR FILTRATION RATE > 60.0 (>39); GLUCOSE, FASTING 152 MG/DL (70-100); HDL CHOLESTEROL 57 MG/DL (>40); LDL CHOLESTEROL 64 MG/DL (<100); NON-HDL-C 86 MG/DL; POTASSIUM SERUM 4.8 MEQ/L (3.5-5.1); SODIUM LEVEL 140 MEQ/L (136-145); THYROID STIMULATING HORMONE 0.245 uIU/ML (0.358-3.740); TOTAL PROTEIN 7.4 GM/DL (6.4-8.2); TRIGLYCERIDES LEVEL 109 MG/DL (<150)
[2019-11-26 14:51] LABS: HEMOGLOBIN A1c 7.2 %
== END ==
LOC: M SFHCADAM 08:15
PROVIDERS: ATTEND Physician Assistant Medical
DX: E11.9 Type 2 diabetes mellitus without complications (principal); E03.9 Hypothyroidism, unspecified

== ENCOUNTER → 2020-02-04 | Outpatient (REF) | payer MEDICARE, OTHER ==
[2020-02-04 16:34] LABS: APPEARANCE, URINE CLOUDY (CLEAR); BACTERIA, URINE AUTO 1+ (NEGATIVE); BILIRUBIN, URINE AUTO NEGATIVE (NEGATIVE); BLOOD, URINE BLOOD 3+ (NEGATIVE); COLOR, URINE YELLOW (YELLOW); GLUCOSE, URINE (UA) AUTO NEGATIVE (NEGATIVE); KETONE, URINE AUTO TRACE mg/dL (NEGATIVE); LEUKOCYTE ESTERASE, URINE AUTO 3+ (NEGATIVE); MUCUS, URINE SMALL (NEGATIVE); NITRITE, URINE AUTO NEGATIVE (NEGATIVE); PROTEIN, URINE AUTO 2+ mg/dL (NEGATIVE); RBC, URINE AUTO 122 /HPF (0-3); SPECIFIC GRAVITY URINE AUTO 1.026 (1.002-1.035); SQUAMOUS EPITHELIAL CELL UR AU 6 /HPF (0-6); UROBILINOGEN, URINE AUTO 0.2 mg/dL (0.0-2.0); WBC, URINE AUTO TNTC /HPF (0-3)
== END ==
LOC: M SFHCADAM 16:06
PROVIDERS: ATTEND Physician Assistant Medical
DX: R39.15 Urgency of urination (principal)

== ENCOUNTER → 2020-04-24 | Outpatient (REF) | payer MEDICARE, OTHER | LOC: M LAB REF 13:00 | PROVIDERS: ATTEND Physician Assistant | DX: N39.0 Urinary tract infection, site not specified (principal) ==

== ENCOUNTER → 2020-05-02 | Outpatient (REF) | payer MEDICARE, OTHER | LOC: M LAB REF 15:28 | PROVIDERS: ATTEND Physician Assistant | DX: R30.0 Dysuria (principal) ==

== ENCOUNTER → 2020-05-18 | Outpatient (REF) | payer MEDICARE, OTHER | LOC: M LAB REF 12:30 | PROVIDERS: ATTEND Physician Assistant | DX: R30.0 Dysuria (principal) ==

== ENCOUNTER → 2020-05-27 | Outpatient (REF) | payer MEDICARE, OTHER ==
[2020-05-27 19:32] LABS: APPEARANCE, URINE CLOUDY (CLEAR); BACTERIA, URINE AUTO NEGATIVE (NEGATIVE); BILIRUBIN, URINE AUTO NEGATIVE (NEGATIVE); BLOOD, URINE BLOOD NEGATIVE (NEGATIVE); CALCIUM OXALATE CRYSTALS LARGE; COLOR, URINE YELLOW (YELLOW); GLUCOSE, URINE (UA) AUTO NEGATIVE (NEGATIVE); KETONE, URINE AUTO NEGATIVE (NEGATIVE); LEUKOCYTE ESTERASE, URINE AUTO NEGATIVE (NEGATIVE); MUCUS, URINE SMALL (NEGATIVE); NITRITE, URINE AUTO NEGATIVE (NEGATIVE); PROTEIN, URINE AUTO NEGATIVE (NEGATIVE); RBC, URINE AUTO 1 /HPF (0-3); SPECIFIC GRAVITY URINE AUTO 1.024 (1.002-1.035); SQUAMOUS EPITHELIAL CELL UR AU 0 /HPF (0-6); UROBILINOGEN, URINE AUTO 0.2 mg/dL (0.0-2.0); WBC, URINE AUTO 3 /HPF (0-3)
[2020-05-27 19:34] LABS: BASO % 0.5 % (0.0-1.0); EOS # 0.3 10^3/uL (0.0-0.5); HEMATOCRIT 44.1 % (36.0-47.0); HEMOGLOBIN 13.8 g/dl (12.0-15.5); LYMPH # 2.7 10^3/uL (1.5-5.0); LYMPH % 34.5 % (24.0-44.0); MEAN CORPUSCULAR HEMOGLOBIN 28.5 pg (27.0-33.0); MEAN CORPUSCULAR HGB CONC 31.3 g/dl (32.0-36.5); MEAN CORPUSCULAR VOLUME 91.1 fl (80.0-96.0); MONO # 0.6 10^3/uL (0.0-0.8); NEUTROPHILS # 4.1 10^3/uL (1.5-8.5); NEUTROPHILS % 52.5 % (36.0-66.0); PLATELET COUNT, AUTOMATED 256 10^3/uL (150-450); RED BLOOD COUNT 4.84 10^6/uL (4.00-5.40); WHITE BLOOD COUNT 7.8 10^3/uL (4.0-10.0)
[2020-05-27 19:52] LABS: ALT/SGPT 35 U/L (12-78); BILIRUBIN,TOTAL 0.4 MG/DL (0.2-1.0); BLOOD UREA NITROGEN 18 MG/DL (7-18); CALCIUM LEVEL 9.3 MG/DL (8.8-10.2); CARBON DIOXIDE LEVEL 27 MEQ/L (21-32); CHLORIDE LEVEL 106 MEQ/L (98-107); CHOLESTEROL LEVEL 181 MG/DL (<200); CHOLESTEROL RISK RATIO 3.934 (<5); GLOMERULAR FILTRATION RATE > 60.0 (>39); GLUCOSE, FASTING 227 MG/DL (70-100); HDL CHOLESTEROL 46 MG/DL (>40); LDL CHOLESTEROL 97 MG/DL (<100); NON-HDL-C 135 MG/DL; POTASSIUM SERUM 4.8 MEQ/L (3.5-5.1); SODIUM LEVEL 140 MEQ/L (136-145); THYROID STIMULATING HORMONE 0.343 uIU/ML (0.358-3.740); TOTAL PROTEIN 7.5 GM/DL (6.4-8.2); TRIGLYCERIDES LEVEL 190 MG/DL (<150)
[2020-05-27 19:53] LABS: TOTAL 25(OH) VITAMIN D 13.4 NG/ML (30.0-100.0)
== END ==
LOC: M SFHCADAM 13:28
PROVIDERS: ATTEND Family Medicine
DX: R10.30 Lower abdominal pain, unspecified (principal); N20.0 Calculus of kidney; Z86.19 Personal history of other infectious and parasitic diseases; E11.42 Type 2 diabetes mellitus with diabetic polyneuropathy; E66.01 Morbid (severe) obesity due to excess calories; E55.9 Vitamin D deficiency, unspecified

== ENCOUNTER → 2020-05-27 | Outpatient (CLI) | payer MEDICARE, OTHER, BC ==
--- NOTE | 2020-05-27 15:03 | REP ---
Clinical: Abdominal pain. Technique: Axial noncontrast images from the lung bases to the pubic symphysis with coronal and sagittal re-formations. Comparison: 11/17/2006. Findings: Liver, spleen, pancreas, bilateral adrenal glands and kidneys are normal. No perinephric stranding, hydroureteronephrosis, intrarenal or obstructing ureteral calculi are identified. Evidence of prior cholecystectomy. The enteric system is without obstruction or acute inflammatory process. Sigmoid diverticulosis noted without acute diverticulitis. Pelvis demonstrates normal bladder and age-appropriate uterus/adnexa. No ascites. No free air. No adenopathy. Atherosclerotic changes of the aorta and vasculature without aneurysm or dissection. Musculoskeletal structures demonstrate degenerative changes without focal osseous abnormality. Lung bases demonstrate chronic-appearing changes and 3 mm noncalcified nodule in the left lower lobe (image 12). Impression: 1. No acute abdominopelvic pathology appreciated. 2. Diverticulosis without acute diverticulitis. 3. Normal appearance to the urinary tract system. 4. 3 mm noncalcified nodule in the left lower lobe. Electronically Signed by Zay Payne MD 05/27/2020 02:55 P
== END ==
LOC: M RAD 14:18
PROVIDERS: ATTEND Family Medicine
DX: K57.30 Diverticulosis of large intestine without perforation or abscess without bleeding (principal); R91.8 Other nonspecific abnormal finding of lung field; R10.30 Lower abdominal pain, unspecified; N20.0 Calculus of kidney; Z90.49 Acquired absence of other specified parts of digestive tract

== ENCOUNTER → 2020-06-29 | Outpatient (REF) | payer MEDICARE, OTHER ==
[2020-06-29 18:35] LABS: APPEARANCE, URINE TURBID (CLEAR); BACTERIA, URINE AUTO 1+ (NEGATIVE); BILIRUBIN, URINE AUTO NEGATIVE (NEGATIVE); BLOOD, URINE BLOOD 3+ (NEGATIVE); COLOR, URINE AMBER (YELLOW); GLUCOSE, URINE (UA) AUTO NEGATIVE (NEGATIVE); KETONE, URINE AUTO TRACE mg/dL (NEGATIVE); LEUKOCYTE ESTERASE, URINE AUTO 3+ (NEGATIVE); MUCUS, URINE SMALL (NEGATIVE); NITRITE, URINE AUTO NEGATIVE (NEGATIVE); PROTEIN, URINE AUTO 2+ mg/dL (NEGATIVE); RBC, URINE AUTO 28 /HPF (0-3); SPECIFIC GRAVITY URINE AUTO 1.027 (1.002-1.035); SQUAMOUS EPITHELIAL CELL UR AU 0 /HPF (0-6); UROBILINOGEN, URINE AUTO 0.2 mg/dL (0.0-2.0); WBC, URINE AUTO TNTC /HPF (0-3)
== END ==
LOC: M LAB REF 17:46
PROVIDERS: ATTEND Nurse Practitioner Family
DX: N39.0 Urinary tract infection, site not specified (principal)

== ENCOUNTER → 2020-09-01 | Outpatient (REF) | payer MEDICARE, OTHER, BC ==
[2020-09-01 13:18] LABS: FREE T4 1.24 NG/DL (0.76-1.46); THYROID STIMULATING HORMONE 0.454 uIU/ML (0.358-3.740)
== END ==
LOC: M LABDRWAD 12:11
PROVIDERS: ATTEND Internal Medicine Endocrinology, Diabetes & Metabolism
DX: E03.9 Hypothyroidism, unspecified (principal)

== ENCOUNTER → 2020-10-20 | Outpatient (REF) | payer MEDICARE, OTHER, BC | LOC: M LAB REF 10:46 | PROVIDERS: ATTEND Physician Assistant | DX: N30.01 Acute cystitis with hematuria (principal) ==

== ENCOUNTER → 2020-12-14 | Outpatient (REF) | payer MEDICARE, OTHER ==
[~2020-12-14] MED LIST changes: +GABA-282 PO; -GABA-843 PO
[2020-12-14 14:47] LABS: ALBUMIN 3.9 GM/DL (3.2-5.2); ALT/SGPT 34 U/L (12-78); BILIRUBIN,TOTAL 0.6 MG/DL (0.2-1.0); BLOOD UREA NITROGEN 21 MG/DL (7-18); CALCIUM LEVEL 9.7 MG/DL (8.8-10.2); CARBON DIOXIDE LEVEL 25 MEQ/L (21-32); CHLORIDE LEVEL 107 MEQ/L (98-107); CHOLESTEROL LEVEL 161 MG/DL (<200); CHOLESTEROL RISK RATIO 2.981 (<5); GLOMERULAR FILTRATION RATE > 60.0 (>39); GLUCOSE, FASTING 142 MG/DL (70-100); HDL CHOLESTEROL 54 MG/DL (>40); LDL CHOLESTEROL 83 MG/DL (<100); NON-HDL-C 107 MG/DL; POTASSIUM SERUM 4.6 MEQ/L (3.5-5.1); SODIUM LEVEL 142 MEQ/L (136-145); TOTAL 25(OH) VITAMIN D 14.4 NG/ML (30.0-100.0); TOTAL PROTEIN 7.5 GM/DL (6.4-8.2); TRIGLYCERIDES LEVEL 121 MG/DL (<150)
[2020-12-14 16:38] LABS: HEMOGLOBIN A1c 6.7 %
== END ==
LOC: M SFHCADAM 08:22
PROVIDERS: ATTEND Physician Assistant Medical
DX: E03.9 Hypothyroidism, unspecified (principal); E55.9 Vitamin D deficiency, unspecified; E11.42 Type 2 diabetes mellitus with diabetic polyneuropathy

== ENCOUNTER 2021-01-04 17:01 | Emergency (ER) | payer MEDICARE, OTHER ==
[~2021-01-04] VITALS: Ht 170.2 cm; Wt 97.6 kg
[~2021-01-04 17:01] MED LIST changes: -PEG1POW PO; +POLY17PO18 PO
[2021-01-04 18:16] LABS: BASO # 0.1 10^3/uL (0.0-0.2); BASO % 0.6 % (0.0-1.0); EOS # 0.3 10^3/uL (0.0-0.5); EOS % 3.2 % (0.0-3.0); HEMOGLOBIN 13.4 g/dl (12.0-15.5); LYMPH % 38.4 % (24.0-44.0); MEAN CORPUSCULAR HEMOGLOBIN 28.3 pg (27.0-33.0); MEAN CORPUSCULAR HGB CONC 31.9 g/dl (32.0-36.5); MEAN CORPUSCULAR VOLUME 88.6 fl (80.0-96.0); MONO # 0.7 10^3/uL (0.0-0.8); MONO % 8.2 % (2.0-8.0); NEUTROPHILS # 3.9 10^3/uL (1.5-8.5); PLATELET COUNT, AUTOMATED 245 10^3/uL (150-450); RED BLOOD COUNT 4.74 10^6/uL (4.00-5.40); WHITE BLOOD COUNT 7.9 10^3/uL (4.0-10.0)
[2021-01-04 18:42] LABS: ALBUMIN 4.2 GM/DL (3.2-5.2); ALT/SGPT 37 U/L (12-78); BILIRUBIN,DIRECT 0.1 MG/DL (0.0-0.2); BILIRUBIN,TOTAL 0.3 MG/DL (0.2-1.0); BLOOD UREA NITROGEN 28 MG/DL (7-18); CALCIUM LEVEL 9.1 MG/DL (8.8-10.2); CARBON DIOXIDE LEVEL 28 MEQ/L (21-32); CHLORIDE LEVEL 105 MEQ/L (98-107); GLOMERULAR FILTRATION RATE > 60.0 (>39); GLUCOSE, FASTING 183 MG/DL (70-100); LIPASE 140 U/L (73-393); POTASSIUM SERUM 4.3 MEQ/L (3.5-5.1); SODIUM LEVEL 139 MEQ/L (136-145); TOTAL PROTEIN 7.4 GM/DL (6.4-8.2)
[2021-01-04 19:16] LABS: CK-MB VALUE MASS < 1.0 NG/ML (<3.6); CPK CREATINE PHOSPHOKINASE 55 U/L (26-192); MB/CK RELATIVE INDEX 1.82 (< OR =4)
[2021-01-04] MEDS ORDERED: NS 1,000 ML IV ONE (19:25)
[2021-01-04 19:44] LABS: TROPONIN I < 0.02 NG/ML (< 0.10)
--- NOTE | 2021-01-04 19:45 | ECGEPIP ---
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
--- NOTE | 2021-01-04 20:34 | REPVR ---
PROCEDURE INFORMATION: Exam: XR Left Ribs with PA Chest Exam date and time: 01/04/2021 8:12 PM Age: 75 years old Clinical indication: Chest wall pain; Left; Additional info: Rib point tenderness TECHNIQUE: Imaging protocol: XR Left ribs with PA chest. Views: 3 views COMPARISON: No relevant prior studies available. FINDINGS: Lungs: Unremarkable. No consolidation. Pleural spaces: Unremarkable. No pleural effusion. No pneumothorax. Heart/Mediastinum: Unremarkable. No cardiomegaly. Diaphragm: Elevated right hemidiaphragm. Bones/joints: Unremarkable. IMPRESSION: No acute findings. Electronically signed by: Jordi Rahman On 01/04/2021 20:34:31 PM
[2021-01-04 21:20] VITALS: BP 145/78
== END 2021-01-04 21:31 | disposition home or self-care (01) ==
LOC: M ED 17:01
DX: E86.0 Dehydration (principal); R07.82 Intercostal pain; R10.12 Left upper quadrant pain; E11.9 Type 2 diabetes mellitus without complications; E78.5 Hyperlipidemia, unspecified; Z79.82 Long term (current) use of aspirin; Z78.0 Asymptomatic menopausal state; Z88.1 Allergy status to other antibiotic agents; Z88.2 Allergy status to sulfonamides; Z88.8 Allergy status to other drugs, medicaments and biological substances

== ENCOUNTER → 2021-05-11 | Outpatient (CLI) | payer MEDICARE, OTHER ==
[~2021-05-11] MED LIST changes: +FAMO10TA50 PO; -FAMO1TAB25 PO
--- NOTE | 2021-05-11 16:07 | REP ---
INDICATION: CONTUSION COMPARISON: None. TECHNIQUE: AP, lateral, bilateral oblique views left foot. FINDINGS: There is a comminuted oblique fracture through the 5th metatarsal bone with overlying soft tissue swelling. Remainder of the examination demonstrates age-related degenerative changes. IMPRESSION: Acute comminuted oblique fracture through the 5th metatarsal bone. <Electronically signed by Zay Payne > 05/11/21 [id number]
--- NOTE | 2021-05-11 16:08 | REP ---
INDICATION: CONTUSION COMPARISON: None. TECHNIQUE: AP, lateral, bilateral oblique views. FINDINGS: Generalized soft tissue swelling. Age-related degenerative changes are noted. No acute fracture or dislocation. IMPRESSION: Swelling. No acute fracture or dislocation. Age-related osteopenia and degenerative changes. <Electronically signed by Zay Payne > 05/11/21 [id number]
== END ==
LOC: M WUC 15:51
PROVIDERS: ATTEND Physician Assistant
DX: S90.02XA Contusion of left ankle, initial encounter (principal); W18.30XA Fall on same level, unspecified, initial encounter; Y92.009 Unspecified place in unspecified non-institutional (private) residence as the place of occurrence of the external cause

== ENCOUNTER → 2021-08-16 | Outpatient (REF) | payer MEDICARE, OTHER ==
[2021-08-16 13:36] LABS: BASO % 0.6 % (0.0-1.0); EOS # 0.2 10^3/uL (0.0-0.5); EOS % 3.7 % (0.0-3.0); HEMATOCRIT 41.8 % (36.0-47.0); HEMOGLOBIN 13.2 g/dl (12.0-15.5); LYMPH # 2.3 10^3/uL (1.5-5.0); LYMPH % 35.8 % (24.0-44.0); MEAN CORPUSCULAR HEMOGLOBIN 28.5 pg (27.0-33.0); MEAN CORPUSCULAR HGB CONC 31.6 g/dl (32.0-36.5); MEAN CORPUSCULAR VOLUME 90.3 fl (80.0-96.0); MONO # 0.5 10^3/uL (0.0-0.8); MONO % 8.2 % (2.0-8.0); NEUTROPHILS # 3.3 10^3/uL (1.5-8.5); NEUTROPHILS % 51.2 % (36.0-66.0); PLATELET COUNT, AUTOMATED 217 10^3/uL (150-450); RED BLOOD COUNT 4.63 10^6/uL (4.00-5.40); WHITE BLOOD COUNT 6.4 10^3/uL (4.0-10.0)
[2021-08-16 14:05] LABS: HEMOGLOBIN A1c 7.6 %
[2021-08-16 14:14] LABS: ALBUMIN 3.7 GM/DL (3.2-5.2); ALT/SGPT 25 U/L (12-78); BILIRUBIN,TOTAL 0.8 MG/DL (0.2-1.0); BLOOD UREA NITROGEN 19 MG/DL (7-18); CALCIUM LEVEL 9.3 MG/DL (8.8-10.2); CARBON DIOXIDE LEVEL 28 MEQ/L (21-32); CHLORIDE LEVEL 106 MEQ/L (98-107); CHOLESTEROL LEVEL 132 MG/DL (<200); CHOLESTEROL RISK RATIO 2.588 (<5); CREATININE FOR GFR 0.68 MG/DL (0.55-1.30); GLOMERULAR FILTRATION RATE > 60.0 (>39); GLUCOSE, FASTING 149 MG/DL (70-100); HDL CHOLESTEROL 51 MG/DL (>40); LDL CHOLESTEROL 58 MG/DL (<100); NON-HDL-C 81 MG/DL; POTASSIUM SERUM 4.6 MEQ/L (3.5-5.1); SODIUM LEVEL 139 MEQ/L (136-145); THYROID STIMULATING HORMONE 0.452 uIU/ML (0.358-3.740); TOTAL 25(OH) VITAMIN D 17.5 NG/ML (30.0-100.0); TOTAL PROTEIN 7.1 GM/DL (6.4-8.2); TRIGLYCERIDES LEVEL 116 MG/DL (<150)
== END ==
LOC: M SFHCADAM 08:06
PROVIDERS: ATTEND Physician Assistant Medical
DX: E11.42 Type 2 diabetes mellitus with diabetic polyneuropathy (principal); E03.9 Hypothyroidism, unspecified; E66.01 Morbid (severe) obesity due to excess calories; E55.9 Vitamin D deficiency, unspecified; K21.9 Gastro-esophageal reflux disease without esophagitis

== ENCOUNTER → 2021-12-03 | Outpatient (REF) | payer MEDICARE, OTHER | LOC: M SFHCLERA 16:50 | PROVIDERS: ATTEND Physician Assistant | DX: J02.9 Acute pharyngitis, unspecified (principal) ==

== ENCOUNTER → 2022-02-01 | Outpatient (REF) | payer MEDICARE, OTHER | LOC: M SFHCADAM 16:09 | PROVIDERS: ATTEND Physician Assistant | DX: J02.9 Acute pharyngitis, unspecified (principal) ==

== ENCOUNTER → 2022-02-21 | Outpatient (REF) | payer MEDICARE, OTHER ==
[2022-02-21 13:10] LABS: BASO % 0.6 % (0.0-1.0); EOS # 0.2 10^3/uL (0.0-0.5); EOS % 3.2 % (0.0-3.0); HEMATOCRIT 41.5 % (36.0-47.0); HEMOGLOBIN 13.1 g/dl (12.0-15.5); LYMPH # 2.9 10^3/uL (1.5-5.0); LYMPH % 43.2 % (24.0-44.0); MEAN CORPUSCULAR HEMOGLOBIN 28.1 pg (27.0-33.0); MEAN CORPUSCULAR HGB CONC 31.6 g/dl (32.0-36.5); MEAN CORPUSCULAR VOLUME 89.1 fl (80.0-96.0); MONO # 0.5 10^3/uL (0.0-0.8); MONO % 7.5 % (2.0-8.0); NEUTROPHILS % 44.6 % (36.0-66.0); PLATELET COUNT, AUTOMATED 253 10^3/uL (150-450); RED BLOOD COUNT 4.66 10^6/uL (4.00-5.40); WHITE BLOOD COUNT 6.8 10^3/uL (4.0-10.0)
[2022-02-21 13:31] LABS: HEMOGLOBIN A1c 7.3 %
[2022-02-21 13:49] LABS: ALBUMIN 3.8 GM/DL (3.2-5.2); ALT/SGPT 31 U/L (12-78); BILIRUBIN,TOTAL 0.6 MG/DL (0.2-1.0); BLOOD UREA NITROGEN 24 MG/DL (7-18); CARBON DIOXIDE LEVEL 27 MEQ/L (21-32); CHLORIDE LEVEL 107 MEQ/L (98-107); CHOLESTEROL LEVEL 143 MG/DL (<200); CHOLESTEROL RISK RATIO 2.648 (<5); CREATININE FOR GFR 0.74 MG/DL (0.55-1.30); GLOMERULAR FILTRATION RATE > 60.0 (>39); GLUCOSE, FASTING 162 MG/DL (70-100); HDL CHOLESTEROL 54 MG/DL (>40); LDL CHOLESTEROL 69 MG/DL (<100); NON-HDL-C 89 MG/DL; POTASSIUM SERUM 4.6 MEQ/L (3.5-5.1); SODIUM LEVEL 139 MEQ/L (136-145); THYROID STIMULATING HORMONE 0.581 uIU/ML (0.358-3.740); TOTAL PROTEIN 7.4 GM/DL (6.4-8.2); TRIGLYCERIDES LEVEL 99 MG/DL (<150)
== END ==
LOC: M SFHCADAM 08:02
PROVIDERS: ATTEND Physician Assistant Medical
DX: E03.9 Hypothyroidism, unspecified (principal); E66.01 Morbid (severe) obesity due to excess calories; E55.9 Vitamin D deficiency, unspecified; K21.9 Gastro-esophageal reflux disease without esophagitis

== ENCOUNTER → 2022-09-21 | Outpatient (REF) | payer MEDICARE, OTHER ==
[2022-09-21 14:55] LABS: BASO # 0.1 10^3/uL (0.0-0.2); BASO % 0.4 % (0.0-1.0); EOS # 0.5 10^3/uL (0.0-0.5); EOS % 2.9 % (0.0-3.0); HEMATOCRIT 40.8 % (36.0-47.0); HEMOGLOBIN 12.8 g/dl (12.0-15.5); LYMPH # 2.5 10^3/uL (1.5-5.0); LYMPH % 15.8 % (24.0-44.0); MEAN CORPUSCULAR HEMOGLOBIN 28.6 pg (27.0-33.0); MEAN CORPUSCULAR HGB CONC 31.4 g/dl (32.0-36.5); MEAN CORPUSCULAR VOLUME 91.1 fl (80.0-96.0); MONO # 0.9 10^3/uL (0.0-0.8); MONO % 5.8 % (2.0-8.0); NEUTROPHILS # 11.7 10^3/uL (1.5-8.5); NEUTROPHILS % 73.9 % (36.0-66.0); PLATELET COUNT, AUTOMATED 256 10^3/uL (150-450); RED BLOOD COUNT 4.48 10^6/uL (4.00-5.40); WHITE BLOOD COUNT 15.9 10^3/uL (4.0-10.0)
[2022-09-21 16:19] LABS: CREATININE, URINE 167.9 MG/DL; MAU/CREAT RATIO 86.3 MCG/MG (0.0-30.0)
[2022-09-21 16:26] LABS: ALT/SGPT 21 U/L (7.0-40); BILIRUBIN,TOTAL 0.6 MG/DL (0.3-1.2); BLOOD UREA NITROGEN 20 MG/DL (9-23); CARBON DIOXIDE LEVEL 25 MMOL/L (20-31); CHLORIDE LEVEL 101 MMOL/L (98-107); CHOLESTEROL LEVEL 125 MG/DL (<200); CHOLESTEROL RISK RATIO 2.51 (<5); CREATININE FOR GFR 0.71 MG/DL (0.55-1.30); GLOMERULAR FILTRATION RATE > 60.0 (>39); GLUCOSE, FASTING 223 MG/DL (74-106); HDL CHOLESTEROL 49.8 MG/DL (>40); LDL CHOLESTEROL 49.2 MG/DL (<100); NON-HDL-C 75 MG/DL; POTASSIUM SERUM 4.4 MMOL/L (3.5-5.1); SODIUM LEVEL 139 MMOL/L (136-145); THYROID STIMULATING HORMONE 0.542 uIU/ML (0.55-4.78); TOTAL 25(OH) VITAMIN D 15.4 NG/ML (20.0-100.0); TOTAL PROTEIN 7.3 G/DL (5.7-8.2); TRIGLYCERIDES LEVEL 130 MG/DL (<150)
[2022-09-21 17:18] LABS: HEMOGLOBIN A1c 7.6 % (4.0-6.0)
== END ==
LOC: M SFHCADAM 09:34
PROVIDERS: ATTEND Physician Assistant Medical
DX: E11.42 Type 2 diabetes mellitus with diabetic polyneuropathy (principal); E03.9 Hypothyroidism, unspecified; E66.01 Morbid (severe) obesity due to excess calories; E55.9 Vitamin D deficiency, unspecified; B00.1 Herpesviral vesicular dermatitis; R35.0 Frequency of micturition; R05.9 Cough, unspecified

== ENCOUNTER 2022-12-02 14:17 | Emergency (ER) | payer MEDICARE, OTHER ==
[~2022-12-02] VITALS: Ht 170.2 cm; Wt 97.7 kg
[2022-12-02 14:37] VITALS: BP 155/78
[2022-12-02] MEDS ORDERED: PERC5TAB12 PO (17:03)
[2022-12-02] MEDS ORDERED: PERCOCET 5MG/325MG TAB PO ONE (17:05)
== END 2022-12-02 17:33 | disposition home or self-care (01) ==
LOC: M ED 14:17
DX: S60.211A Contusion of right wrist, initial encounter (principal); S22.32XA Fracture of one rib, left side, initial encounter for closed fracture; W10.9XXA Fall (on) (from) unspecified stairs and steps, initial encounter; F41.9 Anxiety disorder, unspecified; E78.00 Pure hypercholesterolemia, unspecified; Z87.442 Personal history of urinary calculi; Z87.81 Personal history of (healed) traumatic fracture; Z79.84 Long term (current) use of oral hypoglycemic drugs; Z79.899 Other long term (current) drug therapy; Z88.2 Allergy status to sulfonamides; Z88.0 Allergy status to penicillin; Z88.1 Allergy status to other antibiotic agents; Z88.3 Allergy status to other anti-infective agents

== ENCOUNTER → 2023-01-05 | Outpatient (CLI) | payer MEDICARE, BC, OTHER ==
[~2023-01-05] MED LIST changes: +ACET-897 PO; +CEPH500C PO; +ERGO500029; +ERGO500029 PO; +LEVO88TA3; +MACR100C43 PO; +NITR100C2; +OLOP5DRO6 OU; +ONDA4TAB6 PO; +PERC5TAB12 PO; +PROB250C PO; +SYNT88TA2 PO
== END ==
LOC: M RAD 13:09
PROVIDERS: ATTEND Physician Assistant
DX: N39.0 Urinary tract infection, site not specified (principal); N23 Unspecified renal colic

== ENCOUNTER 2023-01-12 16:45 | Inpatient (IN) | payer MEDICARE, BC, OTHER ==
[~2023-01-12] VITALS: Ht 170.2 cm; Wt 93.4 kg
[~2023-01-12 16:45] MED LIST changes: -ACET-897 PO; -CEPH500C PO; -ERGO500029; -ERGO500029 PO; -LEVO88TA3; -MACR100C43 PO; -NITR100C2; -OLOP5DRO6 OU; -ONDA4TAB6 PO; -PROB250C PO; -SYNT88TA2 PO
[2023-01-12] MEDS ORDERED: LEVO88TA3 (16:57)
[2023-01-12] MEDS ORDERED: NITR100C2 (16:57)
[2023-01-12] MEDS ORDERED: ERGO500029 (16:57)
[2023-01-12] MEDS ORDERED: ACETAMINOPHEN 500 MG TAB PO ONE (20:25)
[2023-01-12] MEDS ORDERED: NS 1,000 ML IV ONE (21:05)
[2023-01-12 22:13] LABS: BASO # 0.1 10^3/uL (0.0-0.2); BASO % 0.2 % (0.0-1.0); EOS # 0.1 10^3/uL (0.0-0.5); EOS % 0.3 % (0.0-3.0); HEMATOCRIT 36.9 % (36.0-47.0); HEMOGLOBIN 12.1 g/dl (12.0-15.5); LYMPH # 2.3 10^3/uL (1.5-5.0); LYMPH % 10.9 % (24.0-44.0); MEAN CORPUSCULAR HEMOGLOBIN 28.8 pg (27.0-33.0); MEAN CORPUSCULAR HGB CONC 32.8 g/dl (32.0-36.5); MEAN CORPUSCULAR VOLUME 87.9 fl (80.0-96.0); MONO # 0.9 10^3/uL (0.0-0.8); MONO % 4.1 % (2.0-8.0); NEUTROPHILS # 17.8 10^3/uL (1.5-8.5); NEUTROPHILS % 83.9 % (36.0-66.0); PLATELET COUNT, AUTOMATED 216 10^3/uL (150-450); WHITE BLOOD COUNT 21.2 10^3/uL (4.0-10.0)
[2023-01-12 22:19] LABS: LIPASE 28 U/L (12-53)
[2023-01-12 22:22] LABS: CPK CREATINE PHOSPHOKINASE 40 U/L (34-145)
[2023-01-12 22:24] LABS: FREE T4 1.23 NG/DL (0.89-1.76); THYROID STIMULATING HORMONE 0.362 uIU/ML (0.55-4.78)
[2023-01-12 22:25] LABS: ALBUMIN 3.4 G/DL (3.2-5.2); ALKALINE PHOSPHATASE 64 U/L (46-116); ALT/SGPT 15 U/L (7.0-40); AST/SGOT 17 U/L (<34); BILIRUBIN,DIRECT 0.3 MG/DL (<0.4); BLOOD UREA NITROGEN 18 MG/DL (9-23); CALCIUM LEVEL 8.6 MG/DL (8.3-10.6); CARBON DIOXIDE LEVEL 24 MMOL/L (20-31); CHLORIDE LEVEL 103 MMOL/L (98-107); CK-MB VALUE MASS < 1.0 NG/ML (<3.6); CREATININE FOR GFR 0.66 MG/DL (0.55-1.30); GLOMERULAR FILTRATION RATE > 60.0 (>39); GLUCOSE, FASTING 195 MG/DL (74-106); SODIUM LEVEL 136 MMOL/L (136-145); TOTAL PROTEIN 6.5 G/DL (5.7-8.2)
[2023-01-12] MEDS ORDERED: NS IV ONE (22:25)
[2023-01-12] MEDS ORDERED: LevoFLOXacin IV 750 MG in IV 1 EA IV ONE (22:25)
[2023-01-12 23:27] LABS: CK-MB VALUE MASS < 1.0 NG/ML (<3.6)
[2023-01-12 23:36] LABS: CPK CREATINE PHOSPHOKINASE 42 U/L (34-145); MB/CK RELATIVE INDEX 2.38 (< OR =4)
[2023-01-13 01:05] LABS: CK-MB VALUE MASS < 1.0 NG/ML (<3.6)
[2023-01-13 01:07] LABS: CPK CREATINE PHOSPHOKINASE 33 U/L (34-145); MB/CK RELATIVE INDEX 3.03 (< OR =4)
[2023-01-13] MEDS: ACETAMINOPHEN TAB 650MG DOSE (2X325MG) PO PRN (02:13)
[2023-01-13] MEDS ORDERED: OLOP5DRO6 OU (02:31)
[2023-01-13] MEDS ORDERED: MACR100C43 PO (02:31)
[2023-01-13] MEDS ORDERED: ERGO500029 PO (02:31)
[2023-01-13] MEDS ORDERED: ONDA4TAB6 PO (02:31)
[2023-01-13] MEDS ORDERED: SYNT88TA2 PO (02:31)
[2023-01-13] MEDS ORDERED: ACET-897 PO (02:31)
[2023-01-13] MEDS ORDERED: HOME MED LIST COMPLETE! XX SCH (02:35)
[2023-01-13] MEDS ORDERED: GLUCOSE 4GM CHEW TABLET PO PRN (03:00)
[2023-01-13] MEDS ORDERED: ONDANSETRON 4MG ORAL DISINTEGRATING TAB PO PRN (03:00)
[2023-01-13] MEDS ORDERED: DEXTROSE 50% 50ML SYRINGE IV PRN (03:00)
[2023-01-13] MEDS ORDERED: FAMOTIDINE 20 MG TAB PO PRN (03:00)
[2023-01-13] MEDS ORDERED: LORATADINE 10 MG TAB PO PRN (03:00)
[2023-01-13] MEDS ORDERED: OLOPATADINE 0.1% OPHTH SOL 5ML(PATANOL) OU PRN (03:00)
[2023-01-13] MEDS ORDERED: GLUCAGON INJ 1MG VIAL SC PRN (03:00)
[2023-01-13] MEDS: LR 1,000 ML IV SCH ×3 (03:03→12:32)
[2023-01-13] MEDS: MEROPENEM INJ 1 GM in IV 1 EA IV SCH ×3 (03:03→18:44)
[2023-01-13] MEDS ORDERED: PILL CUTTER 1 EACH XX PRN (03:25)
[2023-01-13] MEDS: KETOROLAC 30 MG/ML 1ML VIAL IV PRN (05:12)
[2023-01-13] MEDS: LEVOTHYROXINE 88MCG TABLET (0.088 MG) PO SCH (06:29)
[2023-01-13 07:22] LABS: HEMATOCRIT 33.4 % (36.0-47.0); HEMOGLOBIN 10.5 g/dl (12.0-15.5); MEAN CORPUSCULAR HEMOGLOBIN 28.2 pg (27.0-33.0); MEAN CORPUSCULAR HGB CONC 31.4 g/dl (32.0-36.5); MEAN CORPUSCULAR VOLUME 89.8 fl (80.0-96.0); PLATELET COUNT, AUTOMATED 190 10^3/uL (150-450); RED BLOOD COUNT 3.72 10^6/uL (4.00-5.40); WHITE BLOOD COUNT 12.5 10^3/uL (4.0-10.0)
[2023-01-13 07:50] LABS: BLOOD UREA NITROGEN 15 MG/DL (9-23); CALCIUM LEVEL 8.1 MG/DL (8.3-10.6); CARBON DIOXIDE LEVEL 26 MMOL/L (20-31); CHLORIDE LEVEL 107 MMOL/L (98-107); CREATININE FOR GFR 0.72 MG/DL (0.55-1.30); GLOMERULAR FILTRATION RATE > 60.0 (>39); GLUCOSE, FASTING 142 MG/DL (74-106); MAGNESIUM LEVEL 1.7 MG/DL (1.8-2.4); POTASSIUM SERUM 4.2 MMOL/L (3.5-5.1); SODIUM LEVEL 139 MMOL/L (136-145)
[2023-01-13] MEDS: DOCUSATE SODIUM 100MG CAPSULE PO SCH ×2 (08:06→20:29)
[2023-01-13] MEDS: ENOXAPARIN 40MG/0.4ML SYRINGE (J1650 PER 10MG) SC SCH (08:14)
[2023-01-13] MEDS: INSULIN LISPRO (NovoLOG) PER UNIT SC SCH ×4 (08:14→21:00)
[2023-01-13 11:50] VITALS: BP 140/90
[2023-01-13] MEDS: PERCOCET 5MG/325MG TAB PO PRN (15:03)
[2023-01-13 20:00] VITALS: BP 133/76
[2023-01-13] MEDS: ROSUVASTATIN 10 MG TAB (CRESTOR) PO SCH (20:29)
[2023-01-14] MEDS: MEROPENEM INJ 1 GM in IV 1 EA IV SCH ×3 (02:53→18:32)
[2023-01-14] MEDS: LEVOTHYROXINE 88MCG TABLET (0.088 MG) PO SCH (05:29)
[2023-01-14 06:00] VITALS: BP 127/76
[2023-01-14 06:07] LABS: HEMATOCRIT 34.7 % (36.0-47.0); HEMOGLOBIN 10.9 g/dl (12.0-15.5); MEAN CORPUSCULAR HEMOGLOBIN 28.4 pg (27.0-33.0); MEAN CORPUSCULAR HGB CONC 31.4 g/dl (32.0-36.5); MEAN CORPUSCULAR VOLUME 90.4 fl (80.0-96.0); PLATELET COUNT, AUTOMATED 193 10^3/uL (150-450); RED BLOOD COUNT 3.84 10^6/uL (4.00-5.40); WHITE BLOOD COUNT 7.7 10^3/uL (4.0-10.0)
[2023-01-14 06:35] LABS: BLOOD UREA NITROGEN 16 MG/DL (9-23); CALCIUM LEVEL 8.4 MG/DL (8.3-10.6); CARBON DIOXIDE LEVEL 27 MMOL/L (20-31); CHLORIDE LEVEL 107 MMOL/L (98-107); CREATININE FOR GFR 0.69 MG/DL (0.55-1.30); GLOMERULAR FILTRATION RATE > 60.0 (>39); GLUCOSE, FASTING 175 MG/DL (74-106); POTASSIUM SERUM 4.6 MMOL/L (3.5-5.1); SODIUM LEVEL 140 MMOL/L (136-145)
[2023-01-14] MEDS: DOCUSATE SODIUM 100MG CAPSULE PO SCH ×3 (09:00→21:45)
[2023-01-14] MEDS: ENOXAPARIN 40MG/0.4ML SYRINGE (J1650 PER 10MG) SC SCH (09:51)
[2023-01-14] MEDS: INSULIN LISPRO (NovoLOG) PER UNIT SC SCH ×4 (09:51→22:30)
[2023-01-14 14:00] VITALS: BP 139/76
[2023-01-14] MEDS: ACETAMINOPHEN TAB 650MG DOSE (2X325MG) PO PRN (17:18)
[2023-01-14 20:00] VITALS: BP 139/74
[2023-01-14] MEDS: ROSUVASTATIN 10 MG TAB (CRESTOR) PO SCH (21:45)
[2023-01-14] MEDS: RAMELTEON 8 MG TAB (ROZEREM) PO SCH (21:46)
[2023-01-15] MEDS: MEROPENEM INJ 1 GM in IV 1 EA IV SCH ×3 (03:09→18:59)
[2023-01-15] MEDS: LEVOTHYROXINE 88MCG TABLET (0.088 MG) PO SCH (05:34)
[2023-01-15 06:00] VITALS: BP 93/54
[2023-01-15 06:23] LABS: HEMATOCRIT 36.3 % (36.0-47.0); HEMOGLOBIN 11.4 g/dl (12.0-15.5); MEAN CORPUSCULAR HEMOGLOBIN 28.5 pg (27.0-33.0); MEAN CORPUSCULAR HGB CONC 31.4 g/dl (32.0-36.5); MEAN CORPUSCULAR VOLUME 90.8 fl (80.0-96.0); PLATELET COUNT, AUTOMATED 196 10^3/uL (150-450); WHITE BLOOD COUNT 5.7 10^3/uL (4.0-10.0)
[2023-01-15 06:44] LABS: BLOOD UREA NITROGEN 14 MG/DL (9-23); CALCIUM LEVEL 8.3 MG/DL (8.3-10.6); CARBON DIOXIDE LEVEL 26 MMOL/L (20-31); CHLORIDE LEVEL 107 MMOL/L (98-107); CREATININE FOR GFR 0.65 MG/DL (0.55-1.30); GLOMERULAR FILTRATION RATE > 60.0 (>39); GLUCOSE, FASTING 184 MG/DL (74-106); SODIUM LEVEL 140 MMOL/L (136-145)
[2023-01-15 07:44] VITALS: BP 140/82
[2023-01-15] MEDS: DOCUSATE SODIUM 100MG CAPSULE PO SCH ×2 (08:44→20:54)
[2023-01-15] MEDS: INSULIN LISPRO (NovoLOG) PER UNIT SC SCH ×4 (08:44→20:39)
[2023-01-15] MEDS: ENOXAPARIN 40MG/0.4ML SYRINGE (J1650 PER 10MG) SC SCH (08:44)
[2023-01-15] MEDS: PERCOCET 5MG/325MG TAB PO PRN ×2 (11:17→17:28)
[2023-01-15 14:00] VITALS: BP 129/75
[2023-01-15] MEDS: ACETAMINOPHEN TAB 650MG DOSE (2X325MG) PO PRN (17:28)
[2023-01-15] MEDS ORDERED: IPRATROPIUM 0.5MG/ALBUTEROL 2.5MG INH SOL UD 3ML (DUONEB) NEB PRN (17:35)
[2023-01-15] MEDS: IPRATROPIUM 0.5MG/ALBUTEROL 2.5MG INH SOL UD 3ML (DUONEB) NEB SCH ×3 (17:43→23:18)
[2023-01-15] MEDS: KETOROLAC 30 MG/ML 1ML VIAL IV PRN (19:00)
[2023-01-15 20:00] VITALS: BP 103/73
[2023-01-15] MEDS: ROSUVASTATIN 10 MG TAB (CRESTOR) PO SCH (20:54)
[2023-01-15] MEDS: RAMELTEON 8 MG TAB (ROZEREM) PO SCH (22:09)
[2023-01-16] MEDS: MEROPENEM INJ 1 GM in IV 1 EA IV SCH ×2 (03:27→10:30)
[2023-01-16] MEDS: IPRATROPIUM 0.5MG/ALBUTEROL 2.5MG INH SOL UD 3ML (DUONEB) NEB SCH ×6 (03:35→23:06)
[2023-01-16] MEDS: PERCOCET 5MG/325MG TAB PO PRN ×3 (05:37→20:13)
[2023-01-16] MEDS: LEVOTHYROXINE 88MCG TABLET (0.088 MG) PO SCH (05:37)
[2023-01-16 06:00] VITALS: BP 128/75
[2023-01-16 06:29] LABS: HEMATOCRIT 33.9 % (36.0-47.0); HEMOGLOBIN 10.7 g/dl (12.0-15.5); MEAN CORPUSCULAR HEMOGLOBIN 28.3 pg (27.0-33.0); MEAN CORPUSCULAR HGB CONC 31.6 g/dl (32.0-36.5); MEAN CORPUSCULAR VOLUME 89.7 fl (80.0-96.0); PLATELET COUNT, AUTOMATED 180 10^3/uL (150-450); RED BLOOD COUNT 3.78 10^6/uL (4.00-5.40); WHITE BLOOD COUNT 3.7 10^3/uL (4.0-10.0)
[2023-01-16 06:59] LABS: BLOOD UREA NITROGEN 20 MG/DL (9-23); CALCIUM LEVEL 8.4 MG/DL (8.3-10.6); CARBON DIOXIDE LEVEL 24 MMOL/L (20-31); CHLORIDE LEVEL 106 MMOL/L (98-107); CREATININE FOR GFR 0.64 MG/DL (0.55-1.30); GLOMERULAR FILTRATION RATE > 60.0 (>39); GLUCOSE, FASTING 201 MG/DL (74-106); POTASSIUM SERUM 4.1 MMOL/L (3.5-5.1); SODIUM LEVEL 139 MMOL/L (136-145)
[2023-01-16] MEDS: DOCUSATE SODIUM 100MG CAPSULE PO SCH ×2 (08:15→20:12)
[2023-01-16] MEDS: INSULIN LISPRO (NovoLOG) PER UNIT SC SCH ×4 (08:16→21:31)
[2023-01-16] MEDS: ENOXAPARIN 40MG/0.4ML SYRINGE (J1650 PER 10MG) SC SCH (08:16)
[2023-01-16 14:00] VITALS: BP 128/71
[2023-01-16] MEDS: CEPHALEXIN 500 MG CAP PO SCH ×2 (17:00→23:24)
[2023-01-16 20:00] VITALS: BP 132/81
[2023-01-16] MEDS: ROSUVASTATIN 10 MG TAB (CRESTOR) PO SCH (20:13)
[2023-01-16] MEDS: RAMELTEON 8 MG TAB (ROZEREM) PO SCH (21:31)
[2023-01-17] MEDS: IPRATROPIUM 0.5MG/ALBUTEROL 2.5MG INH SOL UD 3ML (DUONEB) NEB SCH ×3 (04:01→11:11)
[2023-01-17] MEDS: CEPHALEXIN 500 MG CAP PO SCH ×2 (05:12→12:24)
[2023-01-17] MEDS: LEVOTHYROXINE 88MCG TABLET (0.088 MG) PO SCH (05:12)
[2023-01-17] MEDS: PERCOCET 5MG/325MG TAB PO PRN ×2 (05:12→10:56)
[2023-01-17 06:00] VITALS: BP 124/65
[2023-01-17 06:44] LABS: HEMATOCRIT 33.9 % (36.0-47.0); HEMOGLOBIN 10.7 g/dl (12.0-15.5); MEAN CORPUSCULAR HEMOGLOBIN 28.3 pg (27.0-33.0); MEAN CORPUSCULAR HGB CONC 31.6 g/dl (32.0-36.5); MEAN CORPUSCULAR VOLUME 89.7 fl (80.0-96.0); PLATELET COUNT, AUTOMATED 169 10^3/uL (150-450); RED BLOOD COUNT 3.78 10^6/uL (4.00-5.40); WHITE BLOOD COUNT 5.8 10^3/uL (4.0-10.0)
[2023-01-17 07:07] LABS: BLOOD UREA NITROGEN 18 MG/DL (9-23); CARBON DIOXIDE LEVEL 27 MMOL/L (20-31); CHLORIDE LEVEL 104 MMOL/L (98-107); CREATININE FOR GFR 0.59 MG/DL (0.55-1.30); GLOMERULAR FILTRATION RATE > 60.0 (>39); GLUCOSE, FASTING 186 MG/DL (74-106); SODIUM LEVEL 138 MMOL/L (136-145)
[2023-01-17] MEDS: DOCUSATE SODIUM 100MG CAPSULE PO SCH (08:43)
[2023-01-17] MEDS: ENOXAPARIN 40MG/0.4ML SYRINGE (J1650 PER 10MG) SC SCH (08:43)
[2023-01-17] MEDS: INSULIN LISPRO (NovoLOG) PER UNIT SC SCH ×2 (08:44→12:25)
[2023-01-17] MEDS ORDERED: MIRALAX *UNIT DOSE* 17GM PACKET PO SCH (09:00)
[2023-01-17] MEDS ORDERED: PERC5TAB12 PO (12:59)
[2023-01-17] MEDS ORDERED: PROB250C PO (13:07)
[2023-01-17] MEDS ORDERED: CEPH500C PO (13:10)
== END 2023-01-17 14:26 | disposition home or self-care (01) | DRG 872 ==
LOC: M ED 16:45 → M ED INP 01-13 01:41 → ENRESERV 01-13 11:11 → M MSPAV 01-13 11:52 → ENRESERV 01-13 14:55
PROVIDERS: ADMIT Family Medicine; ATTEND Internal Medicine
DX: A41.9 Sepsis, unspecified organism (principal); N10 Acute pyelonephritis; J98.11 Atelectasis; E78.5 Hyperlipidemia, unspecified; E03.9 Hypothyroidism, unspecified; K21.9 Gastro-esophageal reflux disease without esophagitis; E11.42 Type 2 diabetes mellitus with diabetic polyneuropathy; M54.41 Lumbago with sciatica, right side; R05.9 Cough, unspecified; G47.00 Insomnia, unspecified; B96.20 Unspecified Escherichia coli [E. coli] as the cause of diseases classified elsewhere; Z87.442 Personal history of urinary calculi; Z90.49 Acquired absence of other specified parts of digestive tract; Z87.81 Personal history of (healed) traumatic fracture; Z79.84 Long term (current) use of oral hypoglycemic drugs; Z79.890 Hormone replacement therapy; Z88.2 Allergy status to sulfonamides; Z79.899 Other long term (current) drug therapy; Z88.1 Allergy status to other antibiotic agents; Z88.8 Allergy status to other drugs, medicaments and biological substances

== ENCOUNTER → 2023-01-20 | Outpatient (REF) | payer MEDICARE, OTHER ==
[~2023-01-20] MED LIST changes: +ACET-897 PO; +CEPH500C PO; +ERGO500029; +ERGO500029 PO; +LEVO88TA3; +MACR100C43 PO; +NITR100C2; +OLOP5DRO6 OU; +ONDA4TAB6 PO; +PROB250C PO; +SYNT88TA2 PO
[2023-01-20 17:09] LABS: CLOSTRIDIUM DIFFICILE PCR NEGATIVE (NEGATIVE)
== END ==
LOC: EEVIPCON 15:17 → M SFHCADAM 15:17
PROVIDERS: ATTEND Family Medicine
DX: K52.1 Toxic gastroenteritis and colitis (principal); T36.95XA Adverse effect of unspecified systemic antibiotic, initial encounter

== ENCOUNTER → 2023-01-26 | Outpatient (REF) | payer MEDICARE, OTHER ==
[2023-01-26 16:56] LABS: BASO % 0.6 % (0.0-1.0); EOS # 0.2 10^3/uL (0.0-0.5); EOS % 3.5 % (0.0-3.0); HEMATOCRIT 41.9 % (36.0-47.0); HEMOGLOBIN 12.9 g/dl (12.0-15.5); LYMPH # 2.4 10^3/uL (1.5-5.0); LYMPH % 37.8 % (24.0-44.0); MEAN CORPUSCULAR HEMOGLOBIN 28.1 pg (27.0-33.0); MEAN CORPUSCULAR HGB CONC 30.8 g/dl (32.0-36.5); MEAN CORPUSCULAR VOLUME 91.3 fl (80.0-96.0); MONO # 0.6 10^3/uL (0.0-0.8); NEUTROPHILS % 48.6 % (36.0-66.0); PLATELET COUNT, AUTOMATED 314 10^3/uL (150-450); RED BLOOD COUNT 4.59 10^6/uL (4.00-5.40); WHITE BLOOD COUNT 6.2 10^3/uL (4.0-10.0)
[2023-01-26 17:00] LABS: APPEARANCE, URINE HAZY (CLEAR); BACTERIA, URINE AUTO NEGATIVE (NEGATIVE); BILIRUBIN, URINE AUTO NEGATIVE (NEGATIVE); BLOOD, URINE BLOOD NEGATIVE (NEGATIVE); CALCIUM OXALATE CRYSTALS MODERATE; COLOR, URINE YELLOW (YELLOW); GLUCOSE, URINE (UA) AUTO NEGATIVE (NEGATIVE); KETONE, URINE AUTO NEGATIVE (NEGATIVE); LEUKOCYTE ESTERASE, URINE AUTO NEGATIVE (NEGATIVE); MUCUS, URINE SMALL (NEGATIVE); NITRITE, URINE AUTO NEGATIVE (NEGATIVE); PROTEIN, URINE AUTO 1+ mg/dL (NEGATIVE); RBC, URINE AUTO 1 /HPF (0-3); SPECIFIC GRAVITY URINE AUTO 1.024 (1.002-1.035); SQUAMOUS EPITHELIAL CELL UR AU 1 /HPF (0-6); UROBILINOGEN, URINE AUTO 0.2 mg/dL (0.0-2.0); WBC, URINE AUTO 0 /HPF (0-3)
[2023-01-26 17:23] LABS: BLOOD UREA NITROGEN 18 MG/DL (9-23); CALCIUM LEVEL 9.3 MG/DL (8.3-10.6); CARBON DIOXIDE LEVEL 24 MMOL/L (20-31); CHLORIDE LEVEL 105 MMOL/L (98-107); CREATININE FOR GFR 0.62 MG/DL (0.55-1.30); GLOMERULAR FILTRATION RATE > 60.0 (>39); GLUCOSE, FASTING 137 MG/DL (74-106); MAGNESIUM LEVEL 1.6 MG/DL (1.8-2.4); POTASSIUM SERUM 4.2 MMOL/L (3.5-5.1); SODIUM LEVEL 139 MMOL/L (136-145)
== END ==
LOC: M SFHCADAM 11:58
PROVIDERS: ATTEND Physician Assistant Medical
DX: R30.0 Dysuria (principal); R19.7 Diarrhea, unspecified; Z88.9 Allergy status to unspecified drugs, medicaments and biological substances

== ENCOUNTER → 2023-02-14 | Outpatient (REF) | payer MEDICARE, OTHER ==
[~2023-02-14] MED LIST changes: +NITR100C2 PO
== END ==
LOC: M LAB REF 17:26
PROVIDERS: ATTEND Nurse Practitioner Family
DX: M54.50 Low back pain, unspecified (principal)

== ENCOUNTER 2023-02-15 11:22 | Inpatient (IN) | payer MEDICARE, BC, OTHER ==
[~2023-02-15] VITALS: Ht 170.2 cm; Wt 107.5 kg
[~2023-02-15 11:22] MED LIST changes: -NITR100C2 PO
[2023-02-15] MEDS ORDERED: ONDANSETRON 4MG 2ML VIAL IV ONE (12:05)
[2023-02-15] MEDS ORDERED: ACETAMINOPHEN 325 MG TAB PO ONE (12:05)
[2023-02-15] MEDS ORDERED: cefTRIAXone SOD 2 GM in D5W MINI-BAG PLUS 50 ML IV ONE (12:05)
[2023-02-15] MEDS: NS 1,000 ML IV SCH ×4 (12:25→21:41)
[2023-02-15 12:28] LABS: BASO % 0.1 % (0.0-1.0); EOS % 0.1 % (0.0-3.0); HEMATOCRIT 41.3 % (36.0-47.0); HEMOGLOBIN 13.5 g/dl (12.0-15.5); LYMPH # 0.8 10^3/uL (1.5-5.0); LYMPH % 5.1 % (24.0-44.0); MEAN CORPUSCULAR HEMOGLOBIN 28.8 pg (27.0-33.0); MEAN CORPUSCULAR HGB CONC 32.7 g/dl (32.0-36.5); MEAN CORPUSCULAR VOLUME 88.1 fl (80.0-96.0); MONO # 0.4 10^3/uL (0.0-0.8); MONO % 2.6 % (2.0-8.0); NEUTROPHILS # 13.9 10^3/uL (1.5-8.5); NEUTROPHILS % 91.4 % (36.0-66.0); PLATELET COUNT, AUTOMATED 206 10^3/uL (150-450); RED BLOOD COUNT 4.69 10^6/uL (4.00-5.40); WHITE BLOOD COUNT 15.2 10^3/uL (4.0-10.0)
[2023-02-15 12:45] LABS: APPEARANCE, URINE HAZY (CLEAR); BACTERIA, URINE AUTO NEGATIVE (NEGATIVE); BILIRUBIN, URINE AUTO NEGATIVE (NEGATIVE); BLOOD, URINE BLOOD NEGATIVE (NEGATIVE); COLOR, URINE YELLOW (YELLOW); GLUCOSE, URINE (UA) AUTO 1+ mg/dL (NEGATIVE); KETONE, URINE AUTO 2+ mg/dL (NEGATIVE); LEUKOCYTE ESTERASE, URINE AUTO NEGATIVE (NEGATIVE); MUCUS, URINE SMALL (NEGATIVE); NITRITE, URINE AUTO NEGATIVE (NEGATIVE); PROTEIN, URINE AUTO 1+ mg/dL (NEGATIVE); RBC, URINE AUTO 0 /HPF (0-3); SQUAMOUS EPITHELIAL CELL UR AU 1 /HPF (0-6); UROBILINOGEN, URINE AUTO 0.2 mg/dL (0.0-2.0); WBC, URINE AUTO 1 /HPF (0-3)
[2023-02-15 12:56] LABS: ALBUMIN 3.9 G/DL (3.2-5.2); ALKALINE PHOSPHATASE 67 U/L (46-116); ALT/SGPT 24 U/L (7.0-40); AST/SGOT 21 U/L (<34); BILIRUBIN,DIRECT 0.5 MG/DL (<0.4); BILIRUBIN,TOTAL 1.2 MG/DL (0.3-1.2); BLOOD UREA NITROGEN 19 MG/DL (9-23); CALCIUM LEVEL 8.9 MG/DL (8.3-10.6); CARBON DIOXIDE LEVEL 19 MMOL/L (20-31); CHLORIDE LEVEL 102 MMOL/L (98-107); CREATININE FOR GFR 0.65 MG/DL (0.55-1.30); GLOMERULAR FILTRATION RATE > 60.0 (>39); GLUCOSE, FASTING 280 MG/DL (74-106); POTASSIUM SERUM 3.8 MMOL/L (3.5-5.1); SODIUM LEVEL 135 MMOL/L (136-145); TOTAL PROTEIN 7.2 G/DL (5.7-8.2)
[2023-02-15 13:11] LABS: RSV AMPLIFICATION NEGATIVE (NEGATIVE)
[2023-02-15] MEDS ORDERED: FIORICET TAB PO ONE (14:35)
[2023-02-15] MEDS ORDERED: KETOROLAC 30 MG/ML 1ML VIAL IV ONE (14:35)
[2023-02-15] MEDS ORDERED: METOCLOPRAMIDE INJ 10MG/2ML VIAL IV ONE (14:35)
[2023-02-15] MEDS ORDERED: NITR100C2 PO (14:48)
[2023-02-15] MEDS ORDERED: HOME MED LIST COMPLETE! XX SCH (14:55)
[2023-02-15] MEDS ORDERED: metroNIDAZOLE 500 MG in IV 1 EA IV SCH (15:00)
[2023-02-15 15:18] LABS: ERYTHROCYTE SEDIMENTATION RATE 39 mm/hr (0-30)
[2023-02-15 16:15] VITALS: BP 126/65
[2023-02-15] MEDS ORDERED: PERCOCET 5MG/325MG TAB PO PRN ×2 (16:25)
[2023-02-15] MEDS ORDERED: HYDROMORPHONE HCL 0.5 MG/ 0.5 ML SYRINGE IV ONE (16:25)
[2023-02-15] MEDS ORDERED: NS 500 ML IV ONE (16:25)
[2023-02-15] MEDS ORDERED: NS 1,000 ML IV ONE (17:45)
[2023-02-15] MEDS ORDERED: FAMOTIDINE 20 MG TAB PO PRN (17:45)
[2023-02-15] MEDS ORDERED: ACETAMINOPHEN 500 MG TAB PO PRN (17:45)
[2023-02-15] MEDS ORDERED: OLOPATADINE 0.1% OPHTH SOL 5ML(PATANOL) OU PRN (17:45)
[2023-02-15] MEDS ORDERED: LORATADINE 10 MG TAB PO PRN (17:45)
[2023-02-15] MEDS ORDERED: VANCOMYCIN HCL 1,000 MG, VIAL MATE ADAPTER 1 EACH in D5W 250 ML IV ONE (18:00)
[2023-02-15] MEDS: LACTOBACILLUS ACIDOPHILUS CAP (BACID) PO SCH (18:36)
[2023-02-15] MEDS ORDERED: VANCOMYCIN HCL 750 MG, VIAL MATE ADAPTER 1 EACH in D5W 250 ML IV ONE (19:00)
[2023-02-15] MEDS ORDERED: GLUCOSE 4GM CHEW TABLET PO PRN (19:45)
[2023-02-15] MEDS ORDERED: DEXTROSE 50% 50ML SYRINGE IV PRN (19:45)
[2023-02-15] MEDS ORDERED: GLUCAGON INJ 1MG VIAL SC PRN (19:45)
[2023-02-15] MEDS: ROSUVASTATIN 10 MG TAB (CRESTOR) PO SCH (20:35)
[2023-02-15] MEDS ORDERED: PILL CUTTER 1 EACH XX ONE (20:48)
[2023-02-15 20:53] VITALS: BP 122/63
[2023-02-15] MEDS: INSULIN LISPRO (NovoLOG) PER UNIT SC SCH (21:28)
[2023-02-15] MEDS: ACYCLOVIR 1,000 MG in D5W 250 ML IV SCH (21:35)
[2023-02-16] MEDS: ACYCLOVIR 1,000 MG in D5W 250 ML IV SCH ×2 (05:40→15:02)
[2023-02-16] MEDS: LEVOTHYROXINE 88MCG TABLET (0.088 MG) PO SCH (05:55)
[2023-02-16 06:16] LABS: HEMATOCRIT 35.5 % (36.0-47.0); MEAN CORPUSCULAR HEMOGLOBIN 28.4 pg (27.0-33.0); MEAN CORPUSCULAR HGB CONC 31.5 g/dl (32.0-36.5); MEAN CORPUSCULAR VOLUME 90.1 fl (80.0-96.0); PLATELET COUNT, AUTOMATED 173 10^3/uL (150-450); RED BLOOD COUNT 3.94 10^6/uL (4.00-5.40); WHITE BLOOD COUNT 17.1 10^3/uL (4.0-10.0)
[2023-02-16 06:18] LABS: HEMOGLOBIN 11.2 g/dl (12.0-15.5)
[2023-02-16 06:30] VITALS: BP 121/63
[2023-02-16 06:36] LABS: BLOOD UREA NITROGEN 19 MG/DL (9-23); CALCIUM LEVEL 8.2 MG/DL (8.3-10.6); CARBON DIOXIDE LEVEL 19 MMOL/L (20-31); CHLORIDE LEVEL 108 MMOL/L (98-107); CREATININE FOR GFR 0.62 MG/DL (0.55-1.30); GLOMERULAR FILTRATION RATE > 60.0 (>39); GLUCOSE, FASTING 355 MG/DL (74-106); SODIUM LEVEL 137 MMOL/L (136-145)
[2023-02-16 07:31] LABS: ATYPICAL LYMPH 1 % (0-5); LYMPHOCYTES 6 % (16-44); MONOCYTES 1 % (0-5); NEUTROPHILS 91 % (28-66); PLATELET ESTIMATE NORMAL (NORMAL)
[2023-02-16] MEDS: LACTOBACILLUS ACIDOPHILUS CAP (BACID) PO SCH ×2 (08:05→17:51)
[2023-02-16] MEDS: INSULIN LISPRO (NovoLOG) PER UNIT SC SCH ×4 (08:05→21:18)
[2023-02-16] MEDS: VANCOMYCIN HCL 1,000 MG, VIAL MATE ADAPTER 1 EACH in NS 250 ML IV SCH ×2 (08:05→21:17)
[2023-02-16 08:56] LABS: VANCOMYCIN RANDOM 11.6 UG/ML
[2023-02-16] MEDS ORDERED: cefTRIAXone SOD 2 GM in D5W MINI-BAG PLUS 50 ML IV SCH ×2 (09:00→12:00)
[2023-02-16] MEDS ORDERED: LEVEMIR (INSULIN DETEMIR) 1 UNITS/0.01ML SC SCH (09:00)
[2023-02-16 10:53] LABS: APPEARANCE, CSF CLEAR (CLEAR); COLOR, CSF COLORLESS (COLORLESS); CSF TUBE# CELL CNT TUBE 1
[2023-02-16 10:54] LABS: APPEARANCE, CSF CLEAR (CLEAR); COLOR, CSF COLORLESS (COLORLESS); CSF TUBE# CELL CNT TUBE 4
[2023-02-16 11:35] VITALS: BP 118/64
[2023-02-16 11:41] LABS: CSF TUBE# TP TUBE 2; TOTAL PROTEIN,CSF 52.2 MG/DL (15-45)
[2023-02-16 11:44] LABS: CSF TUBE# GLU TUBE 2
[2023-02-16] MEDS ORDERED: CETIRIZINE (ZyrTEC) 10 MG TAB PO ONE (13:00)
[2023-02-16] MEDS ORDERED: ACETAMINOPHEN 500 MG TAB PO PRN (13:00)
[2023-02-16] MEDS ORDERED: CHLORASEPTIC SPRAY MT PRN (13:00)
[2023-02-16 14:00] VITALS: BP 118/65
[2023-02-16 16:00] VITALS: BP 121/67
[2023-02-16] MEDS ORDERED: MONTELUKAST 10 MG TAB PO ONE (17:55)
[2023-02-16] MEDS: OLOPATADINE 0.1% OPHTH SOL 5ML(PATANOL) OU SCH (21:16)
[2023-02-16] MEDS: FLUTICASONE PROP 0.05% NASAL SPRAY 16 GM (FLONASE) NARES SCH (21:16)
[2023-02-16] MEDS: traZODone 50 MG TAB PO PRN (21:17)
[2023-02-16] MEDS: ROSUVASTATIN 10 MG TAB (CRESTOR) PO SCH (21:17)
[2023-02-16] MEDS: LEVEMIR (INSULIN DETEMIR) 1 UNITS/0.01ML SC SCH (21:17)
[2023-02-16] MEDS: guaiFENesin ER 600 MG TAB PO SCH (21:17)
[2023-02-16 22:00] VITALS: BP 117/65
[2023-02-17] MEDS ORDERED: diphenhydrAMINE 50MG CAP PO ONE
[2023-02-17 06:00] VITALS: BP 124/65
[2023-02-17] MEDS: LEVOTHYROXINE 88MCG TABLET (0.088 MG) PO SCH (06:15)
[2023-02-17 07:25] LABS: BASO % 0.1 % (0.0-1.0); HEMATOCRIT 33.3 % (36.0-47.0); HEMOGLOBIN 10.5 g/dl (12.0-15.5); LYMPH # 1.2 10^3/uL (1.5-5.0); LYMPH % 7.3 % (24.0-44.0); MEAN CORPUSCULAR HEMOGLOBIN 28.5 pg (27.0-33.0); MEAN CORPUSCULAR HGB CONC 31.5 g/dl (32.0-36.5); MEAN CORPUSCULAR VOLUME 90.2 fl (80.0-96.0); MONO # 0.6 10^3/uL (0.0-0.8); MONO % 3.7 % (2.0-8.0); NEUTROPHILS # 14.1 10^3/uL (1.5-8.5); PLATELET COUNT, AUTOMATED 221 10^3/uL (150-450); RED BLOOD COUNT 3.69 10^6/uL (4.00-5.40)
[2023-02-17] MEDS ORDERED: INSULIN LISPRO (NovoLOG) PER UNIT SC SCH (07:30)
[2023-02-17 07:38] LABS: VANCOMYCIN LEVEL TROUGH 12.6 UG/ML (10.0-20.0)
[2023-02-17 07:39] LABS: BLOOD UREA NITROGEN 23 MG/DL (9-23); CALCIUM LEVEL 8.4 MG/DL (8.3-10.6); CARBON DIOXIDE LEVEL 21 MMOL/L (20-31); CHLORIDE LEVEL 108 MMOL/L (98-107); CREATININE FOR GFR 0.71 MG/DL (0.55-1.30); GLOMERULAR FILTRATION RATE > 60.0 (>39); GLUCOSE, FASTING 299 MG/DL (74-106); POTASSIUM SERUM 4.4 MMOL/L (3.5-5.1); SODIUM LEVEL 140 MMOL/L (136-145)
[2023-02-17] MEDS: CETIRIZINE (ZyrTEC) 10 MG TAB PO SCH (08:21)
[2023-02-17] MEDS: VANCOMYCIN HCL 1,000 MG, VIAL MATE ADAPTER 1 EACH in NS 250 ML IV SCH (08:21)
[2023-02-17] MEDS: LACTOBACILLUS ACIDOPHILUS CAP (BACID) PO SCH ×2 (08:21→17:35)
[2023-02-17] MEDS: guaiFENesin ER 600 MG TAB PO SCH ×2 (08:22→20:50)
[2023-02-17] MEDS: MONTELUKAST 10 MG TAB PO SCH (08:22)
[2023-02-17] MEDS: LEVEMIR (INSULIN DETEMIR) 1 UNITS/0.01ML SC SCH (08:23)
[2023-02-17] MEDS: INSULIN LISPRO (NovoLOG) PER UNIT SC SCH ×3 (08:23→17:33)
[2023-02-17] MEDS: FLUTICASONE PROP 0.05% NASAL SPRAY 16 GM (FLONASE) NARES SCH (08:25)
[2023-02-17] MEDS: OLOPATADINE 0.1% OPHTH SOL 5ML(PATANOL) OU SCH ×2 (08:25→17:00)
[2023-02-17] MEDS ORDERED: LEVEMIR (INSULIN DETEMIR) 1 UNITS/0.01ML SC ONE ×2 (08:45→09:20)
[2023-02-17] MEDS ORDERED: diphenhydrAMINE 25MG CAP PO ONE (09:35)
[2023-02-17] MEDS ORDERED: ALBUTEROL SULFATE 2.5MG/0.5ML INH NEB SOLN NEB PRN (09:35)
[2023-02-17] MEDS: LEVALBUTEROL 1.25MG 0.5ML CONCENTRATE NEB INH SCH ×3 (10:31→10:44)
[2023-02-17] MEDS ORDERED: diphenhydrAMINE 50MG/ML VIAL IM PRN (13:00)
[2023-02-17] MEDS ORDERED: cefTRIAXone SOD 2 GM in D5W MINI-BAG PLUS 50 ML IV SCH (13:00)
[2023-02-17 14:00] VITALS: BP 116/64
[2023-02-17] MEDS ORDERED: LevoFLOXacin 750 MG TABLET PO SCH (15:00)
[2023-02-17] MEDS: metroNIDAZOLE (FLAGYL) 500MG TABLET PO SCH ×2 (15:16→20:50)
[2023-02-17] MEDS: ROSUVASTATIN 10 MG TAB (CRESTOR) PO SCH (20:50)
[2023-02-17 21:00] VITALS: BP 135/76
[2023-02-17] MEDS: traZODone 50 MG TAB PO PRN (21:44)
[2023-02-17] MEDS ORDERED: diphenhydrAMINE 50MG CAP PO PRN (23:35)
[2023-02-18 05:20] VITALS: BP 147/81
[2023-02-18] MEDS: metroNIDAZOLE (FLAGYL) 500MG TABLET PO SCH (05:52)
[2023-02-18] MEDS: LEVOTHYROXINE 88MCG TABLET (0.088 MG) PO SCH (05:52)
[2023-02-18 06:41] LABS: BASO % 0.1 % (0.0-1.0); HEMATOCRIT 32.3 % (36.0-47.0); HEMOGLOBIN 10.1 g/dl (12.0-15.5); LYMPH # 2.1 10^3/uL (1.5-5.0); LYMPH % 15.6 % (24.0-44.0); MEAN CORPUSCULAR HEMOGLOBIN 28.1 pg (27.0-33.0); MEAN CORPUSCULAR HGB CONC 31.3 g/dl (32.0-36.5); MONO # 0.7 10^3/uL (0.0-0.8); MONO % 4.9 % (2.0-8.0); NEUTROPHILS # 10.6 10^3/uL (1.5-8.5); PLATELET COUNT, AUTOMATED 226 10^3/uL (150-450); RED BLOOD COUNT 3.59 10^6/uL (4.00-5.40); WHITE BLOOD COUNT 13.6 10^3/uL (4.0-10.0)
[2023-02-18 06:54] LABS: BLOOD UREA NITROGEN 25 MG/DL (9-23); CALCIUM LEVEL 8.2 MG/DL (8.3-10.6); CARBON DIOXIDE LEVEL 22 MMOL/L (20-31); CHLORIDE LEVEL 110 MMOL/L (98-107); CREATININE FOR GFR 0.69 MG/DL (0.55-1.30); GLOMERULAR FILTRATION RATE > 60.0 (>39); GLUCOSE, FASTING 194 MG/DL (74-106); POTASSIUM SERUM 4.2 MMOL/L (3.5-5.1); SODIUM LEVEL 141 MMOL/L (136-145)
[2023-02-18] MEDS ORDERED: MUCI600T31 PO (07:34)
[2023-02-18] MEDS ORDERED: METR-265 PO (07:34)
[2023-02-18] MEDS ORDERED: RISATAB3 PO (07:34)
[2023-02-18] MEDS ORDERED: LEVO1TAB40 PO (07:34)
[2023-02-18] MEDS: MONTELUKAST 10 MG TAB PO SCH (08:36)
[2023-02-18] MEDS: LACTOBACILLUS ACIDOPHILUS CAP (BACID) PO SCH (08:36)
[2023-02-18] MEDS: guaiFENesin ER 600 MG TAB PO SCH (08:36)
[2023-02-18] MEDS: CETIRIZINE (ZyrTEC) 10 MG TAB PO SCH (08:36)
[2023-02-18] MEDS: OLOPATADINE 0.1% OPHTH SOL 5ML(PATANOL) OU SCH (08:37)
[2023-02-18] MEDS: INSULIN LISPRO (NovoLOG) PER UNIT SC SCH (08:37)
[2023-02-18] MEDS: FLUTICASONE PROP 0.05% NASAL SPRAY 16 GM (FLONASE) NARES SCH (08:37)
[2023-02-18] MEDS ORDERED: NITROGLYCERIN 0.4MG SUBL TABLET SL PRN ×2 (11:25→12:10)
[2023-02-18 11:43] LABS: CK-MB VALUE MASS < 1.0 NG/ML (<3.6)
[2023-02-18 11:45] LABS: CPK CREATINE PHOSPHOKINASE 53 U/L (34-145); MB/CK RELATIVE INDEX 1.88 (< OR =4)
[2023-02-18] MEDS ORDERED: GI COCKTAIL 50ML BTL(HYOSCYAMINE/MAALOX/LIDOCAINE VISCOUS)(1:3:1) PO ONE (12:00)
[2023-02-18] MEDS ORDERED: ECOT81TA5 PO (12:08)
[2023-02-18] MEDS ORDERED: ASPIRIN 81MG CHEW TABLET PO ONE (12:15)
[2023-02-18 12:19] VITALS: BP 146/80
[2023-02-18 12:21] VITALS: BP 146/80
[2023-02-18 12:29] VITALS: BP 125/76
[2023-02-19] MEDS ORDERED: ASPIRIN 81MG CHEW TABLET PO SCH (09:00)
== END 2023-02-18 12:36 | disposition home or self-care (01) | DRG 871 ==
LOC: M ED 11:22 → M ED INP 14:10 → M MSPAV 16:15
PROVIDERS: ADMIT General Practice; ATTEND General Practice
PROC: 009U3ZX Drainage of Spinal Canal, Percutaneous Approach, Diagnostic (ICD-10-PCS; principal; 2023-02-16 10:15)
DX: A41.9 Sepsis, unspecified organism (principal); I21.A1 Myocardial infarction type 2; K57.32 Diverticulitis of large intestine without perforation or abscess without bleeding; K52.1 Toxic gastroenteritis and colitis; E87.20 Acidosis, unspecified; M54.50 Low back pain, unspecified; E78.5 Hyperlipidemia, unspecified; E03.9 Hypothyroidism, unspecified; K21.9 Gastro-esophageal reflux disease without esophagitis; E11.65 Type 2 diabetes mellitus with hyperglycemia; E11.40 Type 2 diabetes mellitus with diabetic neuropathy, unspecified; G47.00 Insomnia, unspecified; R91.8 Other nonspecific abnormal finding of lung field; Z87.442 Personal history of urinary calculi; Z90.49 Acquired absence of other specified parts of digestive tract; Z79.890 Hormone replacement therapy; Z79.84 Long term (current) use of oral hypoglycemic drugs; Z88.2 Allergy status to sulfonamides; Z88.1 Allergy status to other antibiotic agents; T36.8X5A Adverse effect of other systemic antibiotics, initial encounter

== ENCOUNTER 2023-02-20 13:27 | Inpatient (IN) | payer MEDICARE, BC, OTHER ==
[~2023-02-20] VITALS: Ht 170.2 cm; Wt 92.0 kg
[~2023-02-20 13:27] MED LIST changes: +ECOT81TA5 PO; +LEVO1TAB40 PO; +METR-265 PO; +MUCI600T31 PO; +NITR100C2 PO; +RISATAB3 PO
[2023-02-20 16:03] LABS: BASO # 0.1 10^3/uL (0.0-0.2); BASO % 0.7 % (0.0-1.0); EOS # 0.3 10^3/uL (0.0-0.5); EOS % 3.1 % (0.0-3.0); HEMATOCRIT 38.3 % (36.0-47.0); HEMOGLOBIN 12.5 g/dl (12.0-15.5); LYMPH # 2.6 10^3/uL (1.5-5.0); LYMPH % 24.6 % (24.0-44.0); MEAN CORPUSCULAR HEMOGLOBIN 28.7 pg (27.0-33.0); MEAN CORPUSCULAR HGB CONC 32.6 g/dl (32.0-36.5); MEAN CORPUSCULAR VOLUME 87.8 fl (80.0-96.0); MONO # 0.7 10^3/uL (0.0-0.8); MONO % 6.6 % (2.0-8.0); NEUTROPHILS # 6.4 10^3/uL (1.5-8.5); NEUTROPHILS % 61.4 % (36.0-66.0); PLATELET COUNT, AUTOMATED 236 10^3/uL (150-450); RED BLOOD COUNT 4.36 10^6/uL (4.00-5.40); WHITE BLOOD COUNT 10.4 10^3/uL (4.0-10.0)
[2023-02-20 16:47] LABS: RSV AMPLIFICATION NEGATIVE (NEGATIVE)
[2023-02-20 17:56] LABS: LIPASE 156 U/L (12-53)
[2023-02-20 17:59] LABS: ALBUMIN 2.9 G/DL (3.2-5.2); ALKALINE PHOSPHATASE 65 U/L (46-116); ALT/SGPT 18 U/L (7.0-40); AST/SGOT 14 U/L (<34); BILIRUBIN,DIRECT 0.2 MG/DL (<0.4); BILIRUBIN,TOTAL 0.4 MG/DL (0.3-1.2); BLOOD UREA NITROGEN 10 MG/DL (9-23); CALCIUM LEVEL 8.2 MG/DL (8.3-10.6); CARBON DIOXIDE LEVEL 23 MMOL/L (20-31); CHLORIDE LEVEL 107 MMOL/L (98-107); CK-MB VALUE MASS < 1.0 NG/ML (<3.6); CPK CREATINE PHOSPHOKINASE 28 U/L (34-145); CREATININE FOR GFR 0.58 MG/DL (0.55-1.30); GLOMERULAR FILTRATION RATE > 60.0 (>39); GLUCOSE, FASTING 142 MG/DL (74-106); MB/CK RELATIVE INDEX 3.57 (< OR =4); POTASSIUM SERUM 3.7 MMOL/L (3.5-5.1); SODIUM LEVEL 138 MMOL/L (136-145)
[2023-02-20] MEDS ORDERED: METOCLOPRAMIDE INJ 10MG/2ML VIAL IV ONE (20:10)
[2023-02-20] MEDS ORDERED: MORPHINE 4 MG/ML 1ML VIAL IV ONE (20:15)
[2023-02-20 20:37] LABS: CK-MB VALUE MASS < 1.0 NG/ML (<3.6)
[2023-02-20 20:38] LABS: CPK CREATINE PHOSPHOKINASE 29 U/L (34-145); MB/CK RELATIVE INDEX 3.44 (< OR =4)
[2023-02-21] MEDS ORDERED: METR-265 PO (01:50)
[2023-02-21] MEDS ORDERED: GUAI600T54 PO (01:50)
[2023-02-21] MEDS ORDERED: ASPI81TA26 PO (01:50)
[2023-02-21] MEDS ORDERED: RISATAB3 PO (01:50)
[2023-02-21] MEDS ORDERED: LEVO1TAB40 PO (01:54)
[2023-02-21] MEDS ORDERED: PSEU30TA86 PO (01:54)
[2023-02-21] MEDS ORDERED: TUMS500C PO (01:54)
[2023-02-21] MEDS ORDERED: HOME MED LIST COMPLETE! XX SCH (01:55)
[2023-02-21] MEDS ORDERED: HYDROMORPHONE HCL 0.5 MG/ 0.5 ML SYRINGE IV PRN ×2 (02:45→13:00)
[2023-02-21] MEDS ORDERED: NS 1,000 ML IV SCH (03:00)
[2023-02-21 07:49] LABS: LIPASE 74 U/L (12-53)
[2023-02-21 07:58] LABS: ALBUMIN 3.3 G/DL (3.2-5.2); ALKALINE PHOSPHATASE 64 U/L (46-116); ALT/SGPT 16 U/L (7.0-40); AST/SGOT 15 U/L (<34); BILIRUBIN,TOTAL 0.5 MG/DL (0.3-1.2); BLOOD UREA NITROGEN 11 MG/DL (9-23); CALCIUM LEVEL 8.2 MG/DL (8.3-10.6); CARBON DIOXIDE LEVEL 23 MMOL/L (20-31); CHLORIDE LEVEL 105 MMOL/L (98-107); GLOMERULAR FILTRATION RATE > 60.0 (>39); GLUCOSE, FASTING 159 MG/DL (74-106); POTASSIUM SERUM 3.8 MMOL/L (3.5-5.1); SODIUM LEVEL 137 MMOL/L (136-145); TOTAL PROTEIN 6.6 G/DL (5.7-8.2)
[2023-02-21] MEDS ORDERED: LR 1,000 ML IV SCH (09:25)
[2023-02-21] MEDS: ENOXAPARIN 40MG/0.4ML SYRINGE (J1650 PER 10MG) SC SCH (09:53)
[2023-02-21] MEDS: ONDANSETRON 4MG 2ML VIAL IV PRN ×3 (09:53→21:25)
[2023-02-21] MEDS: MORPHINE 2 MG/ML 1ML VIAL IV PRN ×3 (09:54→21:25)
[2023-02-21 15:05] VITALS: BP 147/81
[2023-02-21] MEDS ORDERED: GLUCAGON INJ 1MG VIAL SC PRN (17:10)
[2023-02-21] MEDS ORDERED: DEXTROSE 50% 50ML SYRINGE IV PRN (17:10)
[2023-02-21] MEDS ORDERED: GLUCOSE 4GM CHEW TABLET PO PRN (17:10)
[2023-02-21] MEDS ORDERED: PILL CUTTER 1 EACH XX PRN (17:15)
[2023-02-21 20:00] VITALS: BP 145/80
[2023-02-21] MEDS: ROSUVASTATIN 10 MG TAB (CRESTOR) PO SCH (21:25)
[2023-02-22] MEDS: LEVOTHYROXINE 88MCG TABLET (0.088 MG) PO SCH (05:24)
[2023-02-22] MEDS: ONDANSETRON 4MG 2ML VIAL IV PRN ×2 (05:25→23:35)
[2023-02-22] MEDS: MORPHINE 2 MG/ML 1ML VIAL IV PRN ×4 (05:26→23:36)
[2023-02-22 06:00] VITALS: BP 125/80
[2023-02-22 07:00] LABS: BLOOD UREA NITROGEN 15 MG/DL (9-23); CALCIUM LEVEL 8.6 MG/DL (8.3-10.6); CARBON DIOXIDE LEVEL 24 MMOL/L (20-31); CHLORIDE LEVEL 103 MMOL/L (98-107); CREATININE FOR GFR 0.65 MG/DL (0.55-1.30); GLOMERULAR FILTRATION RATE > 60.0 (>39); GLUCOSE, FASTING 115 MG/DL (74-106); POTASSIUM SERUM 4.1 MMOL/L (3.5-5.1); SODIUM LEVEL 137 MMOL/L (136-145)
[2023-02-22] MEDS: ENOXAPARIN 40MG/0.4ML SYRINGE (J1650 PER 10MG) SC SCH (09:55)
[2023-02-22 14:00] VITALS: BP 126/75
[2023-02-22 19:49] VITALS: BP 132/69
[2023-02-22] MEDS: ROSUVASTATIN 10 MG TAB (CRESTOR) PO SCH (20:15)
[2023-02-23] MEDS: LEVOTHYROXINE 88MCG TABLET (0.088 MG) PO SCH (05:41)
[2023-02-23 05:42] VITALS: BP 137/70
[2023-02-23] MEDS: ONDANSETRON 4MG 2ML VIAL IV PRN ×2 (05:42→21:41)
[2023-02-23] MEDS: MORPHINE 2 MG/ML 1ML VIAL IV PRN (05:42)
[2023-02-23 06:48] LABS: BASO % 0.5 % (0.0-1.0); EOS # 0.3 10^3/uL (0.0-0.5); EOS % 4.5 % (0.0-3.0); HEMATOCRIT 38.5 % (36.0-47.0); HEMOGLOBIN 12.3 g/dl (12.0-15.5); LYMPH # 2.2 10^3/uL (1.5-5.0); MEAN CORPUSCULAR HEMOGLOBIN 28.1 pg (27.0-33.0); MEAN CORPUSCULAR HGB CONC 31.9 g/dl (32.0-36.5); MEAN CORPUSCULAR VOLUME 87.9 fl (80.0-96.0); MONO # 0.7 10^3/uL (0.0-0.8); MONO % 9.1 % (2.0-8.0); NEUTROPHILS % 53.6 % (36.0-66.0); PLATELET COUNT, AUTOMATED 248 10^3/uL (150-450); RED BLOOD COUNT 4.38 10^6/uL (4.00-5.40); WHITE BLOOD COUNT 7.4 10^3/uL (4.0-10.0)
[2023-02-23 07:20] LABS: LIPASE 37 U/L (12-53)
[2023-02-23 07:23] LABS: ALKALINE PHOSPHATASE 61 U/L (46-116); ALT/SGPT 19 U/L (7.0-40); AST/SGOT 24 U/L (<34); BILIRUBIN,TOTAL 0.6 MG/DL (0.3-1.2); BLOOD UREA NITROGEN 14 MG/DL (9-23); CALCIUM LEVEL 8.5 MG/DL (8.3-10.6); CARBON DIOXIDE LEVEL 24 MMOL/L (20-31); CHLORIDE LEVEL 102 MMOL/L (98-107); CREATININE FOR GFR 0.64 MG/DL (0.55-1.30); GLOMERULAR FILTRATION RATE > 60.0 (>39); GLUCOSE, FASTING 107 MG/DL (74-106); POTASSIUM SERUM 3.9 MMOL/L (3.5-5.1); SODIUM LEVEL 136 MMOL/L (136-145); TOTAL PROTEIN 6.2 G/DL (5.7-8.2)
[2023-02-23] MEDS: PANTOPRAZOLE 40MG TAB (PROTONIX) PO SCH (08:59)
[2023-02-23] MEDS: ENOXAPARIN 40MG/0.4ML SYRINGE (J1650 PER 10MG) SC SCH (08:59)
[2023-02-23] MEDS: oxyCODONE 5MG TAB PO PRN ×2 (12:31→21:41)
[2023-02-23 14:00] VITALS: BP 131/75
[2023-02-23] MEDS ORDERED: GLUCOSE 4GM CHEW TABLET PO PRN (18:50)
[2023-02-23] MEDS ORDERED: GLUCAGON INJ 1MG VIAL SC PRN (18:50)
[2023-02-23] MEDS ORDERED: DEXTROSE 50% 50ML SYRINGE IV PRN (18:50)
[2023-02-23 19:43] VITALS: BP 140/78
[2023-02-23] MEDS: ROSUVASTATIN 10 MG TAB (CRESTOR) PO SCH (20:27)
[2023-02-24 05:27] VITALS: BP 141/79
[2023-02-24] MEDS: ONDANSETRON 4MG 2ML VIAL IV PRN (05:39)
[2023-02-24] MEDS: LEVOTHYROXINE 88MCG TABLET (0.088 MG) PO SCH (05:39)
[2023-02-24] MEDS: oxyCODONE 5MG TAB PO PRN (05:40)
[2023-02-24 06:59] LABS: HEMATOCRIT 37.9 % (36.0-47.0); HEMOGLOBIN 12.2 g/dl (12.0-15.5); MEAN CORPUSCULAR HEMOGLOBIN 28.4 pg (27.0-33.0); MEAN CORPUSCULAR HGB CONC 32.2 g/dl (32.0-36.5); MEAN CORPUSCULAR VOLUME 88.1 fl (80.0-96.0); PLATELET COUNT, AUTOMATED 239 10^3/uL (150-450)
[2023-02-24] MEDS ORDERED: INSULIN LISPRO (NovoLOG) PER UNIT SC SCH (07:30)
[2023-02-24] MEDS: ENOXAPARIN 40MG/0.4ML SYRINGE (J1650 PER 10MG) SC SCH (08:46)
[2023-02-24] MEDS: PANTOPRAZOLE 40MG TAB (PROTONIX) PO SCH (08:46)
[2023-02-24] MEDS ORDERED: SENOKOT S TAB PO SCH (09:00)
[2023-02-24] MEDS ORDERED: OXYC-517 PO (10:12)
[2023-02-24] MEDS ORDERED: PANT40TA29 PO (10:12)
[2023-02-24] MEDS ORDERED: SENN-52 PO (10:12)
== END 2023-02-24 11:32 | disposition home or self-care (01) | DRG 439 ==
LOC: M ED 13:27 → M ED INP 02-21 02:33 → ENRESERV 02-21 13:21 → M MSPAV 02-21 15:05
PROVIDERS: ADMIT Internal Medicine; ATTEND Internal Medicine Nephrology
DX: K85.90 Acute pancreatitis without necrosis or infection, unspecified (principal); J84.9 Interstitial pulmonary disease, unspecified; K57.32 Diverticulitis of large intestine without perforation or abscess without bleeding; E11.40 Type 2 diabetes mellitus with diabetic neuropathy, unspecified; M48.061 Spinal stenosis, lumbar region without neurogenic claudication; R91.8 Other nonspecific abnormal finding of lung field; E78.5 Hyperlipidemia, unspecified; K21.9 Gastro-esophageal reflux disease without esophagitis; G47.00 Insomnia, unspecified; E03.9 Hypothyroidism, unspecified; Z79.82 Long term (current) use of aspirin; Z79.890 Hormone replacement therapy; Z79.84 Long term (current) use of oral hypoglycemic drugs; Z79.899 Other long term (current) drug therapy; Z88.0 Allergy status to penicillin; Z88.1 Allergy status to other antibiotic agents; Z88.2 Allergy status to sulfonamides; Z88.8 Allergy status to other drugs, medicaments and biological substances; Z87.442 Personal history of urinary calculi; Z87.440 Personal history of urinary (tract) infections

== ENCOUNTER → 2023-03-02 | Outpatient (REF) | payer MEDICARE, OTHER ==
[~2023-03-02] MED LIST changes: +ASPI81TA26 PO; +GUAI600T54 PO; +OXYC-517 PO; +PANT40TA29 PO; +PSEU30TA86 PO; +SENN-52 PO; +TUMS500C PO
== END ==
LOC: M LAB REF 17:05
PROVIDERS: ATTEND Registered Nurse
DX: R30.0 Dysuria (principal)

== ENCOUNTER → 2023-03-08 | Outpatient (CLI) | payer MEDICARE, OTHER ==
[2023-03-08 15:12] LABS: BASO % 0.8 % (0.0-1.0); EOS # 0.3 10^3/uL (0.0-0.5); EOS % 5.1 % (0.0-3.0); HEMATOCRIT 41.4 % (36.0-47.0); HEMOGLOBIN 13.1 g/dl (12.0-15.5); LYMPH # 2.1 10^3/uL (1.5-5.0); LYMPH % 43.2 % (24.0-44.0); MEAN CORPUSCULAR HEMOGLOBIN 28.5 pg (27.0-33.0); MEAN CORPUSCULAR HGB CONC 31.6 g/dl (32.0-36.5); MONO # 0.5 10^3/uL (0.0-0.8); MONO % 10.5 % (2.0-8.0); PLATELET COUNT, AUTOMATED 213 10^3/uL (150-450); WHITE BLOOD COUNT 4.9 10^3/uL (4.0-10.0)
[2023-03-08 15:14] LABS: ALKALINE PHOSPHATASE 59 U/L (46-116); ALT/SGPT 25 U/L (7.0-40); AST/SGOT 28 U/L (<34); BILIRUBIN,TOTAL 0.6 MG/DL (0.3-1.2); BLOOD UREA NITROGEN 18 MG/DL (9-23); CALCIUM LEVEL 9.9 MG/DL (8.3-10.6); CARBON DIOXIDE LEVEL 26 MMOL/L (20-31); CHLORIDE LEVEL 103 MMOL/L (98-107); CREATININE FOR GFR 0.79 MG/DL (0.55-1.30); GLOMERULAR FILTRATION RATE > 60.0 (>39); GLUCOSE, FASTING 146 MG/DL (74-106); POTASSIUM SERUM 4.3 MMOL/L (3.5-5.1); SODIUM LEVEL 137 MMOL/L (136-145); TOTAL PROTEIN 7.2 G/DL (5.7-8.2)
== END ==
LOC: M PLALAB 09:41
PROVIDERS: ATTEND Registered Nurse
DX: A41.89 Other specified sepsis (principal)

== ENCOUNTER → 2023-04-20 | Outpatient (REF) | payer MEDICARE, OTHER ==
[~2023-04-20] MED LIST changes: +CEFD300C41 PO
== END ==
LOC: M LAB REF 16:55
PROVIDERS: ATTEND Registered Nurse
DX: M54.50 Low back pain, unspecified (principal); Z79.899 Other long term (current) drug therapy

== ENCOUNTER 2023-04-22 08:05 | Observation (INO) | payer MEDICARE, OTHER, BC ==
[~2023-04-22] VITALS: Ht 168.9 cm; Wt 92.8 kg
[~2023-04-22 08:05] MED LIST changes: -CEFD300C41 PO
[2023-04-22] MEDS ORDERED: ONDANSETRON 4MG 2ML VIAL IV ONE (08:55)
[2023-04-22] MEDS ORDERED: NS 1,000 ML IV ONE (08:55)
[2023-04-22] MEDS ORDERED: MORPHINE 2 MG/ML 1ML VIAL IV PRN (08:55)
[2023-04-22 09:45] LABS: BASO % 0.2 % (0.0-1.0); EOS % 0.2 % (0.0-3.0); HEMATOCRIT 39.9 % (36.0-47.0); HEMOGLOBIN 12.8 g/dl (12.0-15.5); LYMPH # 1.2 10^3/uL (1.5-5.0); LYMPH % 7.4 % (24.0-44.0); MEAN CORPUSCULAR HEMOGLOBIN 28.6 pg (27.0-33.0); MEAN CORPUSCULAR HGB CONC 32.1 g/dl (32.0-36.5); MEAN CORPUSCULAR VOLUME 89.3 fl (80.0-96.0); MONO # 0.4 10^3/uL (0.0-0.8); MONO % 2.7 % (2.0-8.0); NEUTROPHILS # 14.2 10^3/uL (1.5-8.5); PLATELET COUNT, AUTOMATED 188 10^3/uL (150-450); RED BLOOD COUNT 4.47 10^6/uL (4.00-5.40); WHITE BLOOD COUNT 15.9 10^3/uL (4.0-10.0)
[2023-04-22 10:01] LABS: INR 0.95; PROTHROMBIN TIME 12.9 SECONDS (12.5-14.5)
[2023-04-22] MEDS ORDERED: MEROPENEM INJ 1 GM in IV 1 EA IV ONE (10:10)
[2023-04-22 10:11] LABS: PARTIAL THROMBOPLASTIN TIME 20.3 SECONDS (24.8-34.2)
[2023-04-22] MEDS ORDERED: ISOVUE-370 76% 100ML VIAL As Ordered ONE (10:18)
[2023-04-22] MEDS ORDERED: NITR100C2 PO (10:27)
[2023-04-22] MEDS ORDERED: PANT40TA29 PO (10:27)
[2023-04-22] MEDS ORDERED: HOME MED LIST COMPLETE! XX SCH (10:30)
[2023-04-22 10:52] LABS: LIPASE 25 U/L (12-53)
[2023-04-22 10:53] LABS: AMYLASE 52 U/L (30-118)
[2023-04-22 10:54] LABS: ALBUMIN 3.6 G/DL (3.2-5.2); ALKALINE PHOSPHATASE 59 U/L (46-116); ALT/SGPT 19 U/L (7.0-40); AST/SGOT 17 U/L (<34); BILIRUBIN,DIRECT 0.3 MG/DL (<0.4); BILIRUBIN,TOTAL 0.7 MG/DL (0.3-1.2); BLOOD UREA NITROGEN 15 MG/DL (9-23); CALCIUM LEVEL 8.4 MG/DL (8.3-10.6); CARBON DIOXIDE LEVEL 21 MMOL/L (20-31); CHLORIDE LEVEL 107 MMOL/L (98-107); CREATININE FOR GFR 0.65 MG/DL (0.55-1.30); GLOMERULAR FILTRATION RATE > 60.0 (>39); GLUCOSE, FASTING 190 MG/DL (74-106); SODIUM LEVEL 140 MMOL/L (136-145); TOTAL PROTEIN 6.3 G/DL (5.7-8.2)
[2023-04-22] MEDS ORDERED: NS 1,720 ML in IV 1 EA IV ONE (10:55)
[2023-04-22 11:31] LABS: RSV AMPLIFICATION NEGATIVE (NEGATIVE)
[2023-04-22] MEDS ORDERED: MOM 30ML SUSPENSION UDC PO PRN (13:20)
[2023-04-22] MEDS ORDERED: LORATADINE 10 MG TAB PO PRN (13:20)
[2023-04-22] MEDS ORDERED: GLUCAGON INJ 1MG VIAL SC PRN (13:20)
[2023-04-22] MEDS ORDERED: DEXTROSE 50% 50ML SYRINGE IV PRN (13:20)
[2023-04-22] MEDS ORDERED: GLUCOSE 4GM CHEW TABLET PO PRN (13:20)
[2023-04-22] MEDS ORDERED: PILL CUTTER 1 EACH XX PRN (13:35)
[2023-04-22] MEDS: ACETAMINOPHEN TAB 650MG DOSE (2X325MG) PO PRN (15:28)
[2023-04-22 15:56] VITALS: BP 137/80; TEMP 100.6; O2SAT 94
[2023-04-22] MEDS ORDERED: cefTRIAXone SOD 1 GM in D5W MINI-BAG PLUS 50 ML IV SCH (16:00)
[2023-04-22] MEDS ORDERED: RIVAROXABAN 10MG TAB (XARELTO) PO SCH (18:00)
[2023-04-22] MEDS: INSULIN LISPRO (NovoLOG) PER UNIT SC SCH (18:28)
[2023-04-22] MEDS: DOCUSATE SODIUM 100MG CAPSULE PO SCH (20:24)
[2023-04-22 21:00] VITALS: BP 119/69; TEMP 98.1; O2SAT 93
[2023-04-22] MEDS ORDERED: INSULIN LISPRO (NovoLOG) PER UNIT SC SCH (21:00)
[2023-04-22] MEDS ORDERED: RAMELTEON 8 MG TAB (ROZEREM) PO SCH (21:00)
[2023-04-22] MEDS ORDERED: ROSUVASTATIN 10 MG TAB (CRESTOR) PO SCH (21:00)
[2023-04-23 02:00] VITALS: BP 120/71; TEMP 98.2; O2SAT 93
[2023-04-23 02:47] VITALS: BP 120/71; TEMP 98.2; O2SAT 92
[2023-04-23] MEDS: ACETAMINOPHEN TAB 650MG DOSE (2X325MG) PO PRN (02:55)
[2023-04-23 05:50] VITALS: BP 117/68; TEMP 97.7; O2SAT 97
[2023-04-23] MEDS ORDERED: LEVOTHYROXINE 88MCG TABLET (0.088 MG) PO SCH (06:00)
[2023-04-23 06:10] LABS: BASO % 0.3 % (0.0-1.0); EOS # 0.3 10^3/uL (0.0-0.5); EOS % 2.4 % (0.0-3.0); HEMATOCRIT 33.4 % (36.0-47.0); HEMOGLOBIN 10.5 g/dl (12.0-15.5); LYMPH # 1.8 10^3/uL (1.5-5.0); LYMPH % 17.2 % (24.0-44.0); MEAN CORPUSCULAR HEMOGLOBIN 28.2 pg (27.0-33.0); MEAN CORPUSCULAR HGB CONC 31.4 g/dl (32.0-36.5); MEAN CORPUSCULAR VOLUME 89.8 fl (80.0-96.0); MONO # 0.6 10^3/uL (0.0-0.8); MONO % 5.3 % (2.0-8.0); NEUTROPHILS # 7.9 10^3/uL (1.5-8.5); NEUTROPHILS % 74.5 % (36.0-66.0); PLATELET COUNT, AUTOMATED 183 10^3/uL (150-450); RED BLOOD COUNT 3.72 10^6/uL (4.00-5.40); WHITE BLOOD COUNT 10.6 10^3/uL (4.0-10.0)
[2023-04-23 06:21] LABS: BLOOD UREA NITROGEN 9 MG/DL (9-23); CALCIUM LEVEL 8.1 MG/DL (8.3-10.6); CARBON DIOXIDE LEVEL 25 MMOL/L (20-31); CHLORIDE LEVEL 108 MMOL/L (98-107); CREATININE FOR GFR 0.65 MG/DL (0.55-1.30); GLOMERULAR FILTRATION RATE > 60.0 (>39); GLUCOSE, FASTING 131 MG/DL (74-106); POTASSIUM SERUM 3.5 MMOL/L (3.5-5.1); SODIUM LEVEL 141 MMOL/L (136-145)
[2023-04-23] MEDS: INSULIN LISPRO (NovoLOG) PER UNIT SC SCH (08:21)
[2023-04-23] MEDS: DOCUSATE SODIUM 100MG CAPSULE PO SCH (08:22)
[2023-04-23] MEDS ORDERED: LR 1,000 ML IV SCH (09:00)
[2023-04-23] MEDS ORDERED: VITAMIN D 50,000 UNITS CAPSULE (ERGOCALCIFEROL 1.25MG) PO SCH (09:00)
[2023-04-23] MEDS ORDERED: PANTOPRAZOLE 40MG TAB (PROTONIX) PO SCH (09:00)
[2023-04-23 10:00] VITALS: BP 114/70; TEMP 98.1; O2SAT 91
[2023-04-23] MEDS ORDERED: CEFD300C41 PO (10:18)
== END 2023-04-23 11:41 | disposition home or self-care (01) ==
LOC: M ED 08:05 → M ED INP 14:52 → M MSPAV 15:38
PROVIDERS: ADMIT Student in an Organized Health Care Education/Training Program; ATTEND Student in an Organized Health Care Education/Training Program
DX: N39.0 Urinary tract infection, site not specified (principal); E87.20 Acidosis, unspecified; D64.9 Anemia, unspecified; R91.1 Solitary pulmonary nodule; J84.9 Interstitial pulmonary disease, unspecified; K57.90 Diverticulosis of intestine, part unspecified, without perforation or abscess without bleeding; E55.9 Vitamin D deficiency, unspecified; K21.9 Gastro-esophageal reflux disease without esophagitis; E78.5 Hyperlipidemia, unspecified; E11.9 Type 2 diabetes mellitus without complications; E03.9 Hypothyroidism, unspecified; J30.9 Allergic rhinitis, unspecified; R00.0 Tachycardia, unspecified; R11.0 Nausea; M54.9 Dorsalgia, unspecified; D72.829 Elevated white blood cell count, unspecified; Z87.440 Personal history of urinary (tract) infections; Z87.19 Personal history of other diseases of the digestive system; Z88.1 Allergy status to other antibiotic agents; Z88.2 Allergy status to sulfonamides; Z88.8 Allergy status to other drugs, medicaments and biological substances; Z79.899 Other long term (current) drug therapy; Z79.890 Hormone replacement therapy; Z79.84 Long term (current) use of oral hypoglycemic drugs
CPT/HCPCS: 36415; 71045; 71275; 74178; 80047; 80048; 80076; 81001; 82150; 83605; 83690; 85025; 85610; 85730; 86850; 86900; 86901; 87040; 87086; 87631; 93005; 93041; 96361; 96374; 96375; 99285; G0378; J0696; J1815; J2184; J2405; Q9967

== ENCOUNTER → 2023-05-29 | Outpatient (CLI) | payer MEDICARE, OTHER, BC ==
[~2023-05-29] MED LIST changes: +CEFD300C41 PO
[2023-05-29 15:42] LABS: BASO % 0.4 % (0.0-1.0); EOS # 0.2 10^3/uL (0.0-0.5); EOS % 2.6 % (0.0-3.0); HEMATOCRIT 40.8 % (36.0-47.0); HEMOGLOBIN 12.9 g/dl (12.0-15.5); LYMPH # 2.9 10^3/uL (1.5-5.0); LYMPH % 42.4 % (24.0-44.0); MEAN CORPUSCULAR HEMOGLOBIN 28.3 pg (27.0-33.0); MEAN CORPUSCULAR HGB CONC 31.6 g/dl (32.0-36.5); MEAN CORPUSCULAR VOLUME 89.5 fl (80.0-96.0); MONO # 0.6 10^3/uL (0.0-0.8); MONO % 8.3 % (2.0-8.0); NEUTROPHILS # 3.2 10^3/uL (1.5-8.5); NEUTROPHILS % 45.9 % (36.0-66.0); PLATELET COUNT, AUTOMATED 231 10^3/uL (150-450); RED BLOOD COUNT 4.56 10^6/uL (4.00-5.40); WHITE BLOOD COUNT 6.9 10^3/uL (4.0-10.0)
[2023-05-29 16:08] LABS: ERYTHROCYTE SEDIMENTATION RATE 26 mm/hr (0-30)
[2023-05-29 16:16] LABS: ALBUMIN 3.9 G/DL (3.2-5.2); ALKALINE PHOSPHATASE 63 U/L (46-116); ALT/SGPT 21 U/L (7.0-40); AST/SGOT 19 U/L (<34); BILIRUBIN,TOTAL 0.6 MG/DL (0.3-1.2); BLOOD UREA NITROGEN 26 MG/DL (9-23); C REACTIVE PROTEIN QUANTITATIV < 0.40 MG/DL (<1.0); CALCIUM LEVEL 9.6 MG/DL (8.3-10.6); CARBON DIOXIDE LEVEL 24 MMOL/L (20-31); CHLORIDE LEVEL 105 MMOL/L (98-107); CREATININE FOR GFR 0.64 MG/DL (0.55-1.30); GLOMERULAR FILTRATION RATE > 60.0 (>39); GLUCOSE, FASTING 161 MG/DL (74-106); POTASSIUM SERUM 4.6 MMOL/L (3.5-5.1); SODIUM LEVEL 140 MMOL/L (136-145); TOTAL PROTEIN 7.1 G/DL (5.7-8.2)
== END ==
LOC: M PLALAB 12:20
PROVIDERS: ATTEND Internal Medicine Infectious Disease
DX: A68.9 Relapsing fever, unspecified (principal)

== ENCOUNTER → 2023-06-01 | Outpatient (CLI) | payer MEDICARE, OTHER, BC | LOC: M WHC 10:18 | PROVIDERS: ATTEND Registered Nurse | DX: Z13.820 Encounter for screening for osteoporosis (principal) ==

== ENCOUNTER → 2023-07-18 | Outpatient (CLI) | payer MEDICARE, OTHER, BC ==
[2023-07-18 14:25] LABS: CHOLESTEROL RISK RATIO 2.61 (<5); FREE T4 1.22 NG/DL (0.89-1.76); HDL CHOLESTEROL 54.4 MG/DL (>40); LDL CHOLESTEROL 63.6 MG/DL (<100); NON-HDL-C 87.6 MG/DL; THYROID STIMULATING HORMONE 0.705 uIU/ML (0.55-4.78)
== END ==
LOC: M PLALAB 08:55
PROVIDERS: ATTEND Registered Nurse
DX: E03.9 Hypothyroidism, unspecified (principal)

== ENCOUNTER → 2023-07-25 | Outpatient (CLI) | payer MEDICARE, OTHER, BC | LOC: M PLALAB 09:49 | PROVIDERS: ATTEND Internal Medicine Gastroenterology | DX: R93.3 Abnormal findings on diagnostic imaging of other parts of digestive tract (principal) ==

== ENCOUNTER → 2023-07-26 | Outpatient (CLI) | payer MEDICARE, OTHER, BC | LOC: M CARPUL 15:27 | PROVIDERS: ATTEND Internal Medicine Pulmonary Disease | DX: R01.1 Cardiac murmur, unspecified (principal) ==

== ENCOUNTER → 2023-07-26 | Outpatient (CLI) | payer MEDICARE, OTHER, BC | LOC: M PLAIMG 13:01 | PROVIDERS: ATTEND Registered Nurse | DX: R91.8 Other nonspecific abnormal finding of lung field (principal) ==

== ENCOUNTER → 2023-07-26 | Outpatient (REF) | payer MEDICARE, OTHER, BC | LOC: M LAB REF 15:29 | PROVIDERS: ATTEND Internal Medicine Gastroenterology | DX: R93.3 Abnormal findings on diagnostic imaging of other parts of digestive tract (principal) ==

== ENCOUNTER → 2023-09-04 | Outpatient (REF) | payer MEDICARE, OTHER, BC ==
[~2023-09-04] MED LIST changes: -CEFD300C41 PO; +CEFD300C42 PO; +OMEP40CA4 PO
[2023-09-04 16:33] LABS: APPEARANCE, URINE HAZY (CLEAR); BACTERIA, URINE AUTO 1+ (NEGATIVE); BILIRUBIN, URINE AUTO NEGATIVE (NEGATIVE); BLOOD, URINE BLOOD NEGATIVE (NEGATIVE); COLOR, URINE YELLOW (YELLOW); GLUCOSE, URINE (UA) AUTO NEGATIVE (NEGATIVE); KETONE, URINE AUTO NEGATIVE (NEGATIVE); LEUKOCYTE ESTERASE, URINE AUTO NEGATIVE (NEGATIVE); MUCUS, URINE SMALL (NEGATIVE); NITRITE, URINE AUTO NEGATIVE (NEGATIVE); PROTEIN, URINE AUTO 1+ mg/dL (NEGATIVE); RBC, URINE AUTO 2 /HPF (0-3); SPECIFIC GRAVITY URINE AUTO 1.027 (1.002-1.035); SQUAMOUS EPITHELIAL CELL UR AU 4 /HPF (0-6); UROBILINOGEN, URINE AUTO 0.2 mg/dL (0.0-2.0); WBC, URINE AUTO 1 /HPF (0-3)
== END ==
LOC: M LABDRWAD 15:58
PROVIDERS: ATTEND Registered Nurse
DX: M54.50 Low back pain, unspecified (principal)

== ENCOUNTER → 2024-04-12 | Outpatient (CLI) | payer MEDICARE, OTHER, BC ==
[~2024-04-12] MED LIST changes: +CEFD1CAP9 PO; -CEFD300C42 PO; +ONDA-282 PO; -ONDA4TAB6 PO; -PSEU30TA86 PO; +PSEU30TA87 PO; +ROSU5TAB40 PO; -ROSU5TAB5 PO
[2024-04-12 11:48] LABS: BASO % 0.6 % (0.0-1.0); EOS # 0.2 10^3/uL (0.0-0.5); EOS % 2.8 % (0.0-3.0); HEMATOCRIT 39.8 % (36.0-47.0); LYMPH # 2.2 10^3/uL (1.5-5.0); LYMPH % 40.7 % (24.0-44.0); MEAN CORPUSCULAR HEMOGLOBIN 29.5 pg (27.0-33.0); MEAN CORPUSCULAR HGB CONC 32.7 g/dl (32.0-36.5); MEAN CORPUSCULAR VOLUME 90.5 fl (80.0-96.0); MONO # 0.4 10^3/uL (0.0-0.8); MONO % 8.3 % (2.0-8.0); NEUTROPHILS # 2.5 10^3/uL (1.5-8.5); NEUTROPHILS % 47.4 % (36.0-66.0); PLATELET COUNT, AUTOMATED 191 10^3/uL (150-450); WHITE BLOOD COUNT 5.3 10^3/uL (4.0-10.0)
[2024-04-12 12:03] LABS: HEMOGLOBIN A1c 6.8 % (4.0-6.0)
[2024-04-12 12:11] LABS: ALBUMIN 3.8 G/DL (3.2-5.2); ALKALINE PHOSPHATASE 59 U/L (46-116); ALT/SGPT 17 U/L (7.0-40); AST/SGOT 16 U/L (<34); BILIRUBIN,TOTAL 0.7 MG/DL (0.3-1.2); BLOOD UREA NITROGEN 17 MG/DL (9-23); CALCIUM LEVEL 9.3 MG/DL (8.3-10.6); CARBON DIOXIDE LEVEL 26 MMOL/L (20-31); CHLORIDE LEVEL 107 MMOL/L (98-107); CHOLESTEROL LEVEL 138 MG/DL (<200); GLOMERULAR FILTRATION RATE > 60.0 (>39); GLUCOSE, FASTING 128 MG/DL (74-106); HDL CHOLESTEROL 51.1 MG/DL (>40); LDL CHOLESTEROL 58.5 MG/DL (<100); NON-HDL-C 86.9 MG/DL; POTASSIUM SERUM 4.4 MMOL/L (3.5-5.1); SODIUM LEVEL 139 MMOL/L (136-145); TOTAL PROTEIN 6.7 G/DL (5.7-8.2); TRIGLYCERIDES LEVEL 142 MG/DL (<150)
[2024-04-12 12:13] LABS: FREE T4 1.32 NG/DL (0.89-1.76); THYROID STIMULATING HORMONE 0.396 uIU/ML (0.55-4.78)
== END ==
LOC: M PLALAB 08:12
PROVIDERS: ATTEND Registered Nurse
DX: E11.9 Type 2 diabetes mellitus without complications (principal); E03.9 Hypothyroidism, unspecified; E78.2 Mixed hyperlipidemia

== ENCOUNTER 2024-07-21 21:05 | Emergency (ER) | payer MEDICARE, OTHER, BC ==
[~2024-07-21] VITALS: Ht 170.2 cm; Wt 90.9 kg
[2024-07-21 21:06] VITALS: BP 142/85; TEMP 97.2; O2SAT 97
== END 2024-07-21 21:48 | disposition left against medical advice (07) ==
LOC: M ED 21:05
DX: Z53.21 Procedure and treatment not carried out due to patient leaving prior to being seen by health care provider (principal)

== ENCOUNTER → 2024-07-23 | Outpatient (CLI) | payer MEDICARE, OTHER, BC | LOC: M PLAIMG 10:34 | PROVIDERS: ATTEND Registered Nurse | DX: R91.8 Other nonspecific abnormal finding of lung field (principal) ==

== ENCOUNTER 2024-11-01 10:10 | Emergency (ER) | payer MEDICARE, OTHER, BC ==
[~2024-11-01] VITALS: Ht 170.2 cm; Wt 88.6 kg
[~2024-11-01 10:10] MED LIST changes: +GABA-1172 PO; -GABA-282 PO; -ROSU5TAB40 PO; +ROSU5TAB49 PO
[2024-11-01 10:51] LABS: BASO % 0.6 % (0.0-1.0); EOS # 0.2 10^3/uL (0.0-0.5); EOS % 2.3 % (0.0-3.0); HEMATOCRIT 40.8 % (36.0-47.0); HEMOGLOBIN 12.9 g/dl (12.0-15.5); LYMPH # 2.1 10^3/uL (1.5-5.0); LYMPH % 32.4 % (24.0-44.0); MEAN CORPUSCULAR HEMOGLOBIN 28.7 pg (27.0-33.0); MEAN CORPUSCULAR HGB CONC 31.6 g/dl (32.0-36.5); MEAN CORPUSCULAR VOLUME 90.7 fl (80.0-96.0); MONO # 0.5 10^3/uL (0.0-0.8); MONO % 8.1 % (2.0-8.0); NEUTROPHILS # 3.7 10^3/uL (1.5-8.5); NEUTROPHILS % 56.3 % (36.0-66.0); PLATELET COUNT, AUTOMATED 201 10^3/uL (150-450); WHITE BLOOD COUNT 6.6 10^3/uL (4.0-10.0)
[2024-11-01 11:21] LABS: LIPASE 40 U/L (12-53)
[2024-11-01 11:24] LABS: ALBUMIN 3.5 G/DL (3.2-5.2); ALKALINE PHOSPHATASE 67 U/L (35-104); ALT/SGPT 15 U/L (7.0-40); AST/SGOT 15 U/L (<34); BILIRUBIN,DIRECT 0.2 MG/DL (<0.4); BILIRUBIN,TOTAL 0.6 MG/DL (0.3-1.2); BLOOD UREA NITROGEN 20 MG/DL (9-23); CALCIUM LEVEL 9.2 MG/DL (8.3-10.6); CARBON DIOXIDE LEVEL 27 MMOL/L (20-31); CHLORIDE LEVEL 104 MMOL/L (98-107); CPK CREATINE PHOSPHOKINASE 82 U/L (34-145); CREATININE FOR GFR 0.64 MG/DL (0.55-1.30); GLOMERULAR FILTRATION RATE > 60.0 (>39); GLUCOSE, FASTING 189 MG/DL (74-106); POTASSIUM SERUM 4.6 MMOL/L (3.5-5.1); SODIUM LEVEL 139 MMOL/L (136-145); TOTAL PROTEIN 6.9 G/DL (5.7-8.2)
[2024-11-01 11:26] LABS: CK-MB VALUE MASS < 1.0 NG/ML (<3.6); MB/CK RELATIVE INDEX 1.21 (< OR =4)
[2024-11-01] MEDS ORDERED: ISOVUE-370 76% 100ML VIAL As Ordered ONE (12:40)
[2024-11-01] MEDS: diazePAM 10MG/2ML SYRINGE IV ONE ×2 (13:02→14:31)
[2024-11-01] MEDS: MECLIZINE 25 MG TABLET PO ONE (14:18)
[2024-11-01] MEDS: KETOROLAC 30 MG/ML 1ML VIAL IV ONE (16:08)
[2024-11-01 16:52] VITALS: O2SAT 97
[2024-11-01] MEDS ORDERED: MECL-209 PO (17:05)
[2024-11-01] MEDS ORDERED: Vestibular PT (17:05)
[2024-11-01 17:18] VITALS: BP 144/75; TEMP 97.6; O2SAT 97
== END 2024-11-01 17:28 | disposition home or self-care (01) ==
LOC: EDBD 10:10 → M ED 10:10
DX: H81.10 Benign paroxysmal vertigo, unspecified ear (principal); E11.9 Type 2 diabetes mellitus without complications; E78.5 Hyperlipidemia, unspecified; K21.9 Gastro-esophageal reflux disease without esophagitis; Z88.1 Allergy status to other antibiotic agents; Z88.2 Allergy status to sulfonamides; Z88.8 Allergy status to other drugs, medicaments and biological substances; Z79.1 Long term (current) use of non-steroidal anti-inflammatories (NSAID); Z79.84 Long term (current) use of oral hypoglycemic drugs; Z79.899 Other long term (current) drug therapy
CPT/HCPCS: 70450; 70496; 70498; 70551; 80047; 80053; 82248; 82550; 82553; 83690; 84484; 85025; 93005; 96374; 96375; 96376; 99285; J1885; J3360; Q9967

== ENCOUNTER → 2025-03-10 | Outpatient (CLI) | payer MEDICARE, OTHER, BC ==
[~2025-03-10] MED LIST changes: +MECL-209 PO; +Vestibular PT
== END ==
LOC: M PLAIMG 09:26
PROVIDERS: ATTEND Registered Nurse
DX: R91.8 Other nonspecific abnormal finding of lung field (principal)

== ENCOUNTER → 2025-06-20 | Outpatient (CLI) | payer MEDICARE, OTHER, BC ==
[2025-06-20 14:00] LABS: CHOLESTEROL LEVEL 126.0 MG/DL (<200); CHOLESTEROL RISK RATIO 2.49 (<5); IRON (FE) 85.0 UG/DL (50-170); LDL CHOLESTEROL 48.5 MG/DL (<100); MAGNESIUM LEVEL 1.6 MG/DL (1.8-2.4); NON-HDL-C 75.5 MG/DL; PERCENT SATURATION 24.9 % (13.2-45.0); TRIGLYCERIDES LEVEL 135.0 MG/DL (<150)
[2025-06-20 14:02] LABS: TOTAL 25(OH) VITAMIN D 43.4 NG/ML (20.0-100.0); VITAMIN B12 LEVEL 233.0 PG/ML (211-911)
== END ==
LOC: M PLALAB 09:41
PROVIDERS: ATTEND Registered Nurse
DX: M62.838 Other muscle spasm (principal); E78.2 Mixed hyperlipidemia